=== PATIENT | female | born 1960 | race Caucasian/White ===

== ENCOUNTER 2019-03-31 14:45 | Inpatient (IN) ==
[2019-03-31] MEDS ORDERED: SODIUM CHLORIDE 0.9% 1,000 ML IV SCH (19:30)
[2019-03-31 20:35] LABS: Basophils % 0.4 % (0.0-0.8); Eosinophils # 0.3 10*3/uL (0.0-0.87); Eosinophils % 3.3 % (0.00-10.9); Hemoglobin 13.7 GM/DL (12.0-16.0); Immature Granulocytes % 0.4 %; Immature Granulocytes Absolute 0.04 #; Lymphocytes # 2.4 10*3/uL (1.4-4.0); Lymphocytes % 25.4 % (21.3-54.2); Mean Corpuscular HGB Conc 31.9 GM/DL (32-36); Mean Corpuscular Volume 87.6 FL (87-102); Monocytes % 8.1 % (1.7-12.7); Neutrophils % 62.4 % (38.7-73.9); Platelet Count 208 T/CUMM (130-400); Red Blood Count 4.91 MC/CUMM (3.8-5.5); Red Cell Distribution Width 13.2 % (9.3-17.3); White Blood Count 9.3 T/CUMM (4-12)
[2019-03-31 20:45] LABS: Albumin 3.9 G/DL (3.4-5.0); Bilirubin,Total 0.4 MG/DL (0.2-1.0); Calcium 9.2 MG/DL (8.5-10.1); Osmolality,Calculated 286.2 MOS/KG (273-304); Total Protein 7.2 G/DL (6.4-8.3)
[2019-03-31] MEDS: CHLORHEXIDINE 0.12% ORAL RINSE 60 ML BOTTLE SWISH/SPIT SCH (21:00)
[2019-03-31] MEDS: TOPIRAMATE 25 MG TABLET PO SCH (21:08)
[2019-03-31] MEDS: ALPRAZolam 0.25 MG TABLET PO SCH (21:08)
[2019-03-31] MEDS: ZALEPLON 5 MG CAPSULE PO SCH (21:08)
[2019-03-31] MEDS: ATORVASTATIN 20 MG TABLET PO SCH (21:08)
[2019-03-31] MEDS: NIACIN ER 500 MG TABLET PO SCH (21:08)
[2019-03-31] MEDS: FUROSEMIDE 40 MG TABLET PO SCH (21:08)
[2019-04-01 05:22] LABS: Basophils % 0.3 % (0.0-0.8); Eosinophils # 0.3 10*3/uL (0.0-0.87); Eosinophils % 4.6 % (0.00-10.9); Hematocrit 39.4 VOL% (35.7-47.0); Hemoglobin 12.7 GM/DL (12.0-16.0); Immature Granulocytes % 0.3 %; Immature Granulocytes Absolute 0.02 #; Lymphocytes # 1.7 10*3/uL (1.4-4.0); Lymphocytes % 26.8 % (21.3-54.2); Mean Corpuscular HGB Conc 32.2 GM/DL (32-36); Mean Corpuscular Volume 86.8 FL (87-102); Mean Platelet Volume 12.3 FL (9.6-12.0); Monocytes % 11.3 % (1.7-12.7); Neutrophils % 56.7 % (38.7-73.9); Platelet Count 159 T/CUMM (130-400); Red Blood Count 4.54 MC/CUMM (3.8-5.5); Red Cell Distribution Width 13.2 % (9.3-17.3); White Blood Count 6.3 T/CUMM (4-12)
[2019-04-01 05:44] LABS: Albumin 3.5 G/DL (3.4-5.0); Calcium 8.7 MG/DL (8.5-10.1); Osmolality,Calculated 287.8 MOS/KG (273-304); Total Protein 6.4 G/DL (6.4-8.3)
[2019-04-01] MEDS: CHLORHEXIDINE 0.12% ORAL RINSE 60 ML BOTTLE SWISH/SPIT SCH ×2 (08:50→21:05)
[2019-04-01] MEDS: INSULIN GLARGINE 100 UNIT/ML SUBCUT SCH (08:50)
[2019-04-01] MEDS: INSULIN ASPART PROTAMINE/ASPART 70/30 100 UNIT/ML SUBCUT SCH ×2 (08:50→16:34)
[2019-04-01] MEDS: ATENOLOL 50 MG TABLET PO SCH (08:51)
[2019-04-01] MEDS: FUROSEMIDE 40 MG TABLET PO SCH ×2 (08:51→15:06)
[2019-04-01] MEDS: ALPRAZolam 0.25 MG TABLET PO SCH ×2 (08:51→21:01)
[2019-04-01] MEDS: LOSARTAN 50 MG TABLET PO SCH (08:51)
[2019-04-01] MEDS: ASPIRIN EC 81 MG TABLET PO SCH (08:51)
[2019-04-01] MEDS: PANTOPRAZOLE 40 MG TABLET PO SCH (08:51)
[2019-04-01] MEDS ORDERED: ALUMINUM/MAGNES/SIMETH MAX STR 30 ML UDCUP PO PRN (16:39)
[2019-04-01] MEDS: ZALEPLON 5 MG CAPSULE PO SCH (21:01)
[2019-04-01] MEDS: ATORVASTATIN 20 MG TABLET PO SCH (21:01)
[2019-04-01] MEDS: TOPIRAMATE 25 MG TABLET PO SCH (21:01)
[2019-04-01] MEDS: NIACIN ER 500 MG TABLET PO SCH (21:01)
[2019-04-01] MEDS: CHLORHEXIDINE 4% SOLN 118 ML BOTTLE TOP SCH (21:04)
[2019-04-02] MEDS: ALPRAZolam 0.25 MG TABLET PO SCH ×2 (09:49→21:15)
[2019-04-02] MEDS: INSULIN GLARGINE 100 UNIT/ML SUBCUT SCH (09:49)
[2019-04-02] MEDS: INSULIN ASPART PROTAMINE/ASPART 70/30 100 UNIT/ML SUBCUT SCH ×2 (09:49→16:40)
[2019-04-02] MEDS: CHLORHEXIDINE 4% SOLN 118 ML BOTTLE TOP SCH ×2 (09:50→16:40)
[2019-04-02] MEDS: FUROSEMIDE 40 MG TABLET PO SCH ×2 (09:50→16:39)
[2019-04-02] MEDS: LOSARTAN 50 MG TABLET PO SCH (09:50)
[2019-04-02] MEDS: ATENOLOL 50 MG TABLET PO SCH (09:50)
[2019-04-02] MEDS: PANTOPRAZOLE 40 MG TABLET PO SCH (09:50)
[2019-04-02] MEDS: ASPIRIN EC 81 MG TABLET PO SCH (09:50)
[2019-04-02] MEDS: CHLORHEXIDINE 0.12% ORAL RINSE 60 ML BOTTLE SWISH/SPIT SCH ×2 (09:55→21:16)
[2019-04-02] MEDS ORDERED: DIAZEPAM 5 MG TABLET PO ONE (13:58)
[2019-04-02] MEDS ORDERED: PANTOPRAZOLE 40 MG TABLET PO ONE (13:58)
[2019-04-02] MEDS: ATORVASTATIN 20 MG TABLET PO SCH (21:16)
[2019-04-02] MEDS: NIACIN ER 500 MG TABLET PO SCH (21:16)
[2019-04-02] MEDS: ZALEPLON 5 MG CAPSULE PO SCH (21:16)
[2019-04-02] MEDS: TOPIRAMATE 25 MG TABLET PO SCH (21:16)
[2019-04-03] MEDS ORDERED: PAPAVERINE 60 MG/2 ML VIAL ONE (05:10)
[2019-04-03] MEDS ORDERED: TISSUE ADHESIVE 1 EACH APPLICATOR TOP ONE (05:10)
[2019-04-03] MEDS ORDERED: VANCOMYCIN 1,000 MG VIAL ONE (05:11)
[2019-04-03] MEDS ORDERED: CEFUROXIME INJ 1,500 MG in SODIUM CHLORIDE 0.9% 100 ML IV ONE (06:00)
[2019-04-03] MEDS ORDERED: HEPARIN/NACL 0.9% 2 UNITS/ML 500 ML IV ONE (06:26)
[2019-04-03] MEDS ORDERED: NITROGLYCERIN DRIP 50 MG/250 ML BOTTLE IV ONE (06:27)
[2019-04-03] MEDS ORDERED: FAMOTIDINE 20 MG/2 ML VIAL IV ONE (06:27)
[2019-04-03] MEDS ORDERED: diphenhydrAMINE 50 MG/1 ML VIAL ONE (06:27)
[2019-04-03] MEDS ORDERED: PANTOPRAZOLE 40 MG TABLET PO ONE (07:00)
[2019-04-03] MEDS ORDERED: DIAZEPAM 5 MG TABLET PO ONE (07:00)
[2019-04-03 07:44] LABS: ABG Base Excess -0.9 MMOL/L (-2.5-2.5); ABG HCO3 23.7 MMOL/L (20-26); ABG PCO2 50.7 MM HG (35-48); ABG PH 7.318 (7.35-7.45); Glucose Heart Surgery 310 MG/DL (74-106); Hematocrit Heart Surgery 39.7 PERCENT (37-47); Hemoglobin Heart Surgery 12.9 G/DL (12.0-16.0); Ionized Calcium Arterial 1.19 MMOL/L (1.21-1.46); PCO2 Patient Temp Arterial 50.7 MMHG; PH Patient Temp Arterial 7.318; Patient Temperature 37 CELCIUS; Potassium Heart/CVR 3.4 MMOL/L (3.5-5.1); Sodium Heart/CVR 136 MMOL/L (135-145)
[2019-04-03 07:50] LABS: Apearance,Urine CLEAR (Clear); Bilirubin,Urine Negative (Negative); Blood, Urine Negative (Negative); Glucose,Urine (UA) 150 mg/dL (Negative); Ketones,Urine Negative (Negative); Nitrite,Urine Negative (Negative); Protein,Urine Negative; RBC,Urine 1 /HPF (0-4); Squamous Epithelial Cell,Urine Occasional /HPF (0-10); Urine Color Yellow (Yellow); Urine Specific Gravity 1.008 (1.001-1.035); Urine Urobilinogen < 2.0 EU/DL (0.2-1.0); WBC,Urine <1 /HPF (0-6)
[2019-04-03 08:16] LABS: ABG Base Excess -3.2 MMOL/L (-2.5-2.5); ABG HCO3 21.7 MMOL/L (20-26); ABG Oxygen Saturation 99.5 % (95-100); ABG TCO2 20.3 MMOL/L (23-27); Glucose Heart Surgery 273 MG/DL (74-106); Hematocrit Heart Surgery 36.4 PERCENT (37-47); Hemoglobin Heart Surgery 11.8 G/DL (12.0-16.0); Ionized Calcium Arterial 1.09 MMOL/L (1.21-1.46); Patient Temperature 37 CELCIUS; Sodium Heart/CVR 137 MMOL/L (135-145)
[2019-04-03 08:57] LABS: Hemoglobin Heart Surgery 8.3 G/DL (12.0-16.0); PCO2 Patient Temp Venous 40.3 MM HG; PH Patient Temp Venous 7.39; PO2 Patient Temp Venous 38.4 MM HG; Potassium Heart/CVR 4.6 MMOL/L (3.5-5.1); VBG Base Excess -0.4 MEQ/L (0-4); VBG HCO3 23.7 MEQ/L (24-28); VBG Oxygen Saturation 73.7 %; VBG PCO2 42.3 MMHG (41-51); VBG PH 7.375; VBG PO2 41.1 MMHG (17-40)
[2019-04-03 09:26] LABS: Hematocrit Heart Surgery 28.1 PERCENT (37-47); PCO2 Patient Temp Venous 39.9 MM HG; PH Patient Temp Venous 7.382; PO2 Patient Temp Venous 46.7 MM HG; Potassium Heart/CVR 4.7 MMOL/L (3.5-5.1); VBG Base Excess -1.2 MEQ/L (0-4); VBG HCO3 23.2 MEQ/L (24-28); VBG Oxygen Saturation 80.4 %; VBG PCO2 39.9 MMHG (41-51); VBG PH 7.382; VBG PO2 46.7 MMHG (17-40)
[2019-04-03 09:45] LABS: ABG Base Excess 0.2 MMOL/L (-2.5-2.5); ABG HCO3 24.6 MMOL/L (20-26); ABG Oxygen Saturation 99.1 % (95-100); ABG PCO2 34.8 MM HG (35-48); ABG PH 7.445 (7.35-7.45); ABG TCO2 21.6 MMOL/L (23-27); Glucose Heart Surgery 330 MG/DL (74-106); Hematocrit Heart Surgery 31.9 PERCENT (37-47); Hemoglobin Heart Surgery 10.3 G/DL (12.0-16.0); Ionized Calcium Arterial 1.31 MMOL/L (1.21-1.46); PCO2 Patient Temp Arterial 34.8 MMHG; PH Patient Temp Arterial 7.445; Patient Temperature 37 CELCIUS; Potassium Heart/CVR 4.2 MMOL/L (3.5-5.1); Sodium Heart/CVR 134 MMOL/L (135-145)
[2019-04-03] MEDS ORDERED: MANNITOL 100 GM/500 ML BAG IV ONE (09:46)
[2019-04-03] MEDS ORDERED: DEXTROSE 5% KCL 20 MEQ 20 MEQ/1,000 ML BAG IV ONE (09:46)
[2019-04-03] MEDS ORDERED: SODIUM BICARBONATE 50 MEQ/50 ML VIAL IV ONE ×2 (09:46→09:49)
[2019-04-03] MEDS ORDERED: ALBUMIN 25% 25 GM/100 ML VIAL IV ONE (09:46)
[2019-04-03] MEDS ORDERED: methylPREDNISolone SOD SUC 1,000 MG/8 ML VIAL ONE (09:47)
[2019-04-03] MEDS ORDERED: FUROSEMIDE 20 MG/2 ML VIAL ONE (09:47)
[2019-04-03] MEDS ORDERED: HEPARIN 10,000 UNIT/10 ML VIAL ONE (09:47)
[2019-04-03] MEDS ORDERED: MAGNESIUM SULFATE 5 GM/10 ML VIAL IV ONE (09:47)
[2019-04-03] MEDS ORDERED: PROTAMINE SULFATE 250 MG/25 ML VIAL IV ONE (09:47)
[2019-04-03] MEDS ORDERED: PHENYLEPHRINE DRIP 40 MG/250 ML PREMIX IV ONE (09:49)
[2019-04-03] MEDS ORDERED: NITROPRUSSIDE 50 MG/2 ML VIAL ONE (09:49)
[2019-04-03] MEDS ORDERED: CALCIUM CHLORIDE 1,000 MG/10 ML SYRINGE IV ONE (09:49)
[2019-04-03] MEDS ORDERED: POTASSIUM CHLORIDE RIDER 100 ML IV ONE (09:49)
[2019-04-03] MEDS: SODIUM CHLORIDE 0.45% 1,000 ML IV SCH ×3 (10:30→23:30)
[2019-04-03] MEDS ORDERED: CALCIUM CHLORIDE 1,000 MG/10 ML VIAL IV ONE (10:41)
[2019-04-03] MEDS ORDERED: SEVOFLURANE 1 UNIT/15 MINUTE INH ONE (10:41)
[2019-04-03] MEDS ORDERED: SODIUM CHLORIDE 0.9% 100 ML IV ONE (10:42)
[2019-04-03] MEDS ORDERED: SUFentanil 250 MCG/5 ML AMP ONE (10:42)
[2019-04-03] MEDS ORDERED: AMINOCAPROIC ACID 5,000 MG/20 ML VIAL ONE (10:42)
[2019-04-03] MEDS ORDERED: LACTATED RINGERS 1,000 ML IV ONE (10:42)
[2019-04-03] MEDS ORDERED: MIDAZOLAM 10 MG/2 ML VIAL ONE (10:42)
[2019-04-03] MEDS ORDERED: SODIUM CHLORIDE 0.9% 2,000 ML IV ONE (10:42)
[2019-04-03] MEDS ORDERED: EPINEPHrine 1 MG/ML VIAL ONE (10:42)
[2019-04-03] MEDS ORDERED: PHENYLEPHRINE 10 MG/1 ML VIAL IV ONE (10:42)
[2019-04-03] MEDS ORDERED: VECURONIUM 10 MG VIAL IV ONE (10:42)
[2019-04-03] MEDS ORDERED: SODIUM CHLORIDE 0.9% 500 ML IV ONE (10:43)
[2019-04-03] MEDS ORDERED: DEXTROSE 50% 25 GM/50 ML SYRINGE IV PRN ×2 (11:03)
[2019-04-03] MEDS ORDERED: MIDAZOLAM 2 MG/2 ML VIAL IV PRN (11:03)
[2019-04-03] MEDS ORDERED: INSULIN REGULAR 100 UNIT/ML IV PRN (11:03)
[2019-04-03] MEDS ORDERED: CALCIUM CHLORIDE 1,000 MG/10 ML SYRINGE IV PRN (11:03)
[2019-04-03] MEDS ORDERED: ALBUMIN 5% 12.5 GM in PREMIX 1 EACH IV PRN (11:03)
[2019-04-03] MEDS ORDERED: MAGNESIUM SULF RIDER 2 GM in PREMIX 1 EACH IV PRN (11:03)
[2019-04-03] MEDS ORDERED: POTASSIUM CHLORIDE RIDER 20 MEQ in PREMIX 1 EACH IV PRN (11:03)
[2019-04-03] MEDS ORDERED: ACETAMINOPHEN 650 MG SUPP RECTAL PRN (11:03)
[2019-04-03] MEDS ORDERED: CHLORHEXIDINE 4% SOLN 118 ML BOTTLE TOP PRN (11:03)
[2019-04-03] MEDS ORDERED: SODIUM CHLORIDE 0.9% 250 ML IV PRN (11:03)
[2019-04-03] MEDS ORDERED: POTASSIUM CHLORIDE RIDER 10 MEQ in PREMIX 1 EACH IV PRN (11:03)
[2019-04-03] MEDS ORDERED: MAGNESIUM SULF RIDER 4 GM in PREMIX 1 EACH IV PRN (11:03)
[2019-04-03 11:31] LABS: ABG Base Excess -3.9 MMOL/L (-2.5-2.5); ABG HCO3 21.1 MMOL/L (20-26); ABG Oxygen Saturation 96.3 % (95-100); ABG PCO2 49.6 MM HG (35-48); ABG PH 7.278 (7.35-7.45); ABG TCO2 21.2 MMOL/L (23-27); Glucose Heart Surgery 235 MG/DL (74-106); Hematocrit Heart Surgery 33.4 PERCENT (37-47); Hemoglobin Heart Surgery 10.8 G/DL (12.0-16.0); Potassium Heart/CVR 3.9 MMOL/L (3.5-5.1)
[2019-04-03 11:35] LABS: Basophils % 0.3 % (0.0-0.8); Eosinophils # 0.1 10*3/uL (0.0-0.87); Eosinophils % 1.4 % (0.00-10.9); Hematocrit 33.5 VOL% (35.7-47.0); Immature Granulocytes % 0.6 %; Immature Granulocytes Absolute 0.04 #; Lymphocytes # 1.1 10*3/uL (1.4-4.0); Lymphocytes % 15.5 % (21.3-54.2); Mean Corpuscular HGB Conc 31.3 GM/DL (32-36); Mean Corpuscular Volume 89.6 FL (87-102); Mean Platelet Volume 11.8 FL (9.6-12.0); Monocytes % 6.1 % (1.7-12.7); Neutrophils % 76.1 % (38.7-73.9); Platelet Count 143 T/CUMM (130-400); Red Blood Count 3.74 MC/CUMM (3.8-5.5); Red Cell Distribution Width 13.2 % (9.3-17.3); White Blood Count 7.1 T/CUMM (4-12)
[2019-04-03 11:40] LABS: Hemoglobin 10.5 GM/DL (12.0-16.0)
[2019-04-03 11:47] LABS: INR 0.9; PT Patient Result 10.3 SECS; Partial Thromboplastin Time 23.4 SECS (0-40)
[2019-04-03] MEDS: INSULIN REGULAR DRIP 100 ML IV SCH ×2 (11:50→20:30)
[2019-04-03 11:59] LABS: Blood Urea Nitrogen 20 MG/DL (7-18); Glucose 226 MG/DL (74-106); Osmolality,Calculated 290.3 MOS/KG (273-304)
[2019-04-03] MEDS ORDERED: ASPIRIN 325 MG TABLET PO ONE (12:49)
[2019-04-03] MEDS: MORPHINE 4 MG/1 ML VIAL IV PRN ×3 (15:00→20:10)
[2019-04-03 15:58] LABS: ABG Base Excess -3.4 MMOL/L (-2.5-2.5); ABG HCO3 21.6 MMOL/L (20-26); ABG Oxygen Saturation 97.5 % (95-100); ABG PCO2 41.4 MM HG (35-48); ABG PH 7.338 (7.35-7.45); Glucose Heart Surgery 192 MG/DL (74-106); Hematocrit Heart Surgery 35.4 PERCENT (37-47); Hemoglobin Heart Surgery 11.5 G/DL (12.0-16.0); Potassium Heart/CVR 3.6 MMOL/L (3.5-5.1)
[2019-04-03] MEDS: CEFUROXIME INJ 1,500 MG in SYRINGE 1 EACH IV SCH (18:38)
[2019-04-03] MEDS: ONDANSETRON 4 MG/2 ML VIAL IV PRN (20:48)
[2019-04-03] MEDS: CHLORHEXIDINE 0.12% ORAL RINSE 60 ML BOTTLE SWISH/SPIT SCH (21:18)
[2019-04-03] MEDS: MORPHINE 10 MG/1 ML VIAL IV PRN (22:06)
[2019-04-04] MEDS: MORPHINE 10 MG/1 ML VIAL IV PRN ×3 (00:33→08:57)
[2019-04-04] MEDS: SODIUM CHLORIDE 0.45% 1,000 ML IV SCH ×2 (01:26→08:24)
[2019-04-04 04:38] LABS: Calcium 7.9 MG/DL (8.5-10.1); Osmolality,Calculated 284.4 MOS/KG (273-304)
[2019-04-04 04:44] LABS: Basophils % 0.1 % (0.0-0.8); Hematocrit 34.6 VOL% (35.7-47.0); Hemoglobin 10.8 GM/DL (12.0-16.0); Immature Granulocytes % 0.6 %; Immature Granulocytes Absolute 0.07 #; Lymphocytes # 0.6 10*3/uL (1.4-4.0); Lymphocytes % 4.9 % (21.3-54.2); Mean Corpuscular HGB Conc 31.2 GM/DL (32-36); Mean Corpuscular Volume 90.3 FL (87-102); Mean Platelet Volume 12.4 FL (9.6-12.0); Monocytes % 5.8 % (1.7-12.7); Neutrophils % 88.6 % (38.7-73.9); Platelet Count 207 T/CUMM (130-400); Red Blood Count 3.83 MC/CUMM (3.8-5.5); Red Cell Distribution Width 13.4 % (9.3-17.3); White Blood Count 12.3 T/CUMM (4-12)
[2019-04-04] MEDS: CEFUROXIME INJ 1,500 MG in SYRINGE 1 EACH IV SCH ×2 (05:34→18:46)
[2019-04-04] MEDS: MORPHINE 4 MG/1 ML VIAL IV PRN ×3 (05:57→20:15)
[2019-04-04 06:20] LABS: Band Neutrophils 5 % (0-10); Lymphocytes 4 % (20-55); Platelet Estimate Adequate; Segmented Neutrophils 86 % (50-85); Total Cells Counted 100
[2019-04-04] MEDS: PANTOPRAZOLE 40 MG VIAL IV SCH (08:37)
[2019-04-04] MEDS: CHLORHEXIDINE 0.12% ORAL RINSE 60 ML BOTTLE SWISH/SPIT SCH ×2 (08:38→22:08)
[2019-04-04] MEDS ORDERED: FUROSEMIDE 40 MG/4 ML VIAL IV ONE (09:50)
[2019-04-04] MEDS: ASPIRIN EC 325 MG TABLET PO SCH (09:55)
[2019-04-04] MEDS: FUROSEMIDE 40 MG TABLET PO SCH (09:55)
[2019-04-04] MEDS: ATORVASTATIN 40 MG TABLET PO SCH ×2 (11:14→21:57)
[2019-04-04] MEDS: CLOPIDOGREL 75 MG TABLET PO SCH (11:14)
[2019-04-04] MEDS: METOPROLOL TARTRATE 25 MG TABLET PO SCH ×2 (11:15→22:04)
[2019-04-04] MEDS: INSULIN GLARGINE 100 UNIT/ML SUBCUT SCH (11:18)
[2019-04-04] MEDS: INSULIN NPH/REGULAR 70/30 100 UNIT/ML SUBCUT SCH ×2 (11:18→22:02)
[2019-04-04] MEDS ORDERED: KETOROLAC 30 MG/1 ML VIAL IV ONE (15:03)
[2019-04-04] MEDS: oxyCODONE/ACETAMINOPHEN 5-325 MG TABLET PO PRN ×2 (15:25→21:57)
[2019-04-04] MEDS: ALPRAZolam 0.25 MG TABLET PO SCH ×2 (15:39→21:57)
[2019-04-04] MEDS: INSULIN LISPRO 100 UNIT/ML SUBCUT SCH ×2 (17:06→22:04)
[2019-04-04] MEDS ORDERED: LEVALBUTEROL 1.25 MG/3 ML NEB RESP TX SCH (19:00)
[2019-04-04] MEDS: LEVALBUTEROL 1.25 MG/3 ML NEB RESP TX SCH (19:35)
[2019-04-04] MEDS: ONDANSETRON 4 MG/2 ML VIAL IV PRN (20:14)
[2019-04-05] MEDS: LEVALBUTEROL 1.25 MG/3 ML NEB RESP TX SCH ×4 (00:07→19:11)
[2019-04-05] MEDS: MORPHINE 4 MG/1 ML VIAL IV PRN ×2 (00:44→21:00)
[2019-04-05] MEDS: oxyCODONE/ACETAMINOPHEN 5-325 MG TABLET PO PRN ×5 (04:57→23:37)
[2019-04-05 05:28] LABS: Basophils % 0.2 % (0.0-0.8); Eosinophils % 0.1 % (0.00-10.9); Hematocrit 34.4 VOL% (35.7-47.0); Hemoglobin 10.9 GM/DL (12.0-16.0); Immature Granulocytes % 0.9 %; Immature Granulocytes Absolute 0.12 #; Lymphocytes # 1.4 10*3/uL (1.4-4.0); Lymphocytes % 10.4 % (21.3-54.2); Mean Corpuscular HGB Conc 31.7 GM/DL (32-36); Mean Corpuscular Volume 89.6 FL (87-102); Mean Platelet Volume 12.2 FL (9.6-12.0); Monocytes % 8.2 % (1.7-12.7); Neutrophils % 80.2 % (38.7-73.9); Platelet Count 221 T/CUMM (130-400); Red Blood Count 3.84 MC/CUMM (3.8-5.5); Red Cell Distribution Width 13.8 % (9.3-17.3); White Blood Count 13.3 T/CUMM (4-12)
[2019-04-05 05:37] LABS: Calcium 8.7 MG/DL (8.5-10.1); Osmolality,Calculated 287.8 MOS/KG (273-304)
[2019-04-05] MEDS: ALPRAZolam 0.25 MG TABLET PO SCH ×2 (08:34→20:44)
[2019-04-05] MEDS: CLOPIDOGREL 75 MG TABLET PO SCH (08:34)
[2019-04-05] MEDS: METOPROLOL TARTRATE 25 MG TABLET PO SCH ×2 (08:34→20:44)
[2019-04-05] MEDS: FUROSEMIDE 40 MG TABLET PO SCH (08:34)
[2019-04-05] MEDS: ASPIRIN EC 325 MG TABLET PO SCH (08:34)
[2019-04-05] MEDS: INSULIN LISPRO 100 UNIT/ML SUBCUT SCH ×4 (08:36→20:48)
[2019-04-05] MEDS: INSULIN GLARGINE 100 UNIT/ML SUBCUT SCH ×2 (08:36→09:50)
[2019-04-05] MEDS: CHLORHEXIDINE 0.12% ORAL RINSE 60 ML BOTTLE SWISH/SPIT SCH ×2 (08:37→20:53)
[2019-04-05] MEDS: INSULIN NPH/REGULAR 70/30 100 UNIT/ML SUBCUT SCH ×2 (08:37→20:45)
[2019-04-05] MEDS: PANTOPRAZOLE 40 MG VIAL IV SCH (08:37)
[2019-04-05] MEDS: ATORVASTATIN 40 MG TABLET PO SCH (20:43)
[2019-04-06] MEDS: LEVALBUTEROL 1.25 MG/3 ML NEB RESP TX SCH ×4 (01:34→19:58)
[2019-04-06] MEDS: oxyCODONE/ACETAMINOPHEN 5-325 MG TABLET PO PRN ×3 (05:35→20:57)
[2019-04-06 06:05] LABS: Basophils % 0.2 % (0.0-0.8); Eosinophils % 0.3 % (0.00-10.9); Hematocrit 34.8 VOL% (35.7-47.0); Hemoglobin 10.8 GM/DL (12.0-16.0); Immature Granulocytes % 0.9 %; Immature Granulocytes Absolute 0.09 #; Lymphocytes # 1.4 10*3/uL (1.4-4.0); Lymphocytes % 14.4 % (21.3-54.2); Mean Corpuscular Volume 90.6 FL (87-102); Mean Platelet Volume 11.7 FL (9.6-12.0); Monocytes % 9.4 % (1.7-12.7); Neutrophils % 74.8 % (38.7-73.9); Platelet Count 224 T/CUMM (130-400); Red Blood Count 3.84 MC/CUMM (3.8-5.5); Red Cell Distribution Width 13.5 % (9.3-17.3); White Blood Count 9.8 T/CUMM (4-12)
[2019-04-06 06:30] LABS: Calcium 8.8 MG/DL (8.5-10.1); Osmolality,Calculated 287.7 MOS/KG (273-304)
[2019-04-06] MEDS: ASPIRIN EC 325 MG TABLET PO SCH (09:25)
[2019-04-06] MEDS: METOPROLOL TARTRATE 25 MG TABLET PO SCH ×2 (09:26→20:56)
[2019-04-06] MEDS: CLOPIDOGREL 75 MG TABLET PO SCH (09:26)
[2019-04-06] MEDS: FUROSEMIDE 40 MG TABLET PO SCH (09:26)
[2019-04-06] MEDS: ALPRAZolam 0.25 MG TABLET PO SCH ×2 (09:26→20:56)
[2019-04-06] MEDS: PANTOPRAZOLE 40 MG TABLET PO SCH (09:26)
[2019-04-06] MEDS: INSULIN GLARGINE 100 UNIT/ML SUBCUT SCH ×2 (09:27→09:28)
[2019-04-06] MEDS: INSULIN LISPRO 100 UNIT/ML SUBCUT SCH ×4 (09:28→21:02)
[2019-04-06] MEDS: INSULIN NPH/REGULAR 70/30 100 UNIT/ML SUBCUT SCH ×2 (09:28→20:55)
[2019-04-06] MEDS: CHLORHEXIDINE 0.12% ORAL RINSE 60 ML BOTTLE SWISH/SPIT SCH ×2 (09:29→20:54)
[2019-04-06] MEDS ORDERED: BISACODYL 5 MG TABLET PO PRN (12:55)
[2019-04-06] MEDS ORDERED: hydrALAZINE 20 MG/1 ML VIAL IV PRN (12:57)
[2019-04-06] MEDS: POLYETHYLENE GLYCOL POWDER 17 GM PACK PO SCH (13:18)
[2019-04-06] MEDS: LISINOPRIL 5 MG TABLET PO SCH ×2 (13:19→20:57)
[2019-04-06 14:27] LABS: Apearance,Urine CLEAR (Clear); Bilirubin,Urine Negative (Negative); Blood, Urine Negative (Negative); Glucose,Urine (UA) 150 mg/dL (Negative); Ketones,Urine Negative (Negative); Nitrite,Urine Negative (Negative); Protein,Urine Negative; RBC,Urine <1 /HPF (0-4); Squamous Epithelial Cell,Urine Occasional /HPF (0-10); Urine Color Colorless (Yellow); Urine Specific Gravity 1.006 (1.001-1.035); Urine Urobilinogen < 2.0 EU/DL (0.2-1.0); WBC,Urine <1 /HPF (0-6)
[2019-04-06] MEDS: MORPHINE 10 MG/1 ML VIAL IV PRN (20:55)
[2019-04-06] MEDS: TOPIRAMATE 25 MG TABLET PO SCH (20:56)
[2019-04-06] MEDS: ATORVASTATIN 40 MG TABLET PO SCH (20:57)
[2019-04-07] MEDS: LEVALBUTEROL 1.25 MG/3 ML NEB RESP TX SCH ×4 (04:15→19:30)
[2019-04-07] MEDS: LISINOPRIL 5 MG TABLET PO SCH ×2 (09:27→21:34)
[2019-04-07] MEDS: ACETAMINOPHEN 325 MG TABLET PO PRN ×3 (09:28→23:38)
[2019-04-07] MEDS: PANTOPRAZOLE 40 MG TABLET PO SCH (09:28)
[2019-04-07] MEDS: METOPROLOL TARTRATE 25 MG TABLET PO SCH (09:29)
[2019-04-07] MEDS: CLOPIDOGREL 75 MG TABLET PO SCH (09:29)
[2019-04-07] MEDS: ASPIRIN EC 325 MG TABLET PO SCH (09:29)
[2019-04-07] MEDS: ALPRAZolam 0.25 MG TABLET PO SCH ×2 (09:29→21:33)
[2019-04-07] MEDS: POLYETHYLENE GLYCOL POWDER 17 GM PACK PO SCH (09:30)
[2019-04-07] MEDS: INSULIN LISPRO 100 UNIT/ML SUBCUT SCH ×4 (09:30→22:41)
[2019-04-07] MEDS: INSULIN NPH/REGULAR 70/30 100 UNIT/ML SUBCUT SCH ×2 (09:30→21:33)
[2019-04-07] MEDS: FUROSEMIDE 40 MG TABLET PO SCH ×2 (09:30→10:28)
[2019-04-07] MEDS: CHLORHEXIDINE 0.12% ORAL RINSE 60 ML BOTTLE SWISH/SPIT SCH ×2 (09:31→21:34)
[2019-04-07] MEDS ORDERED: METOPROLOL TARTRATE 25 MG TABLET PO ONE (10:13)
[2019-04-07] MEDS ORDERED: hydrALAZINE 20 MG/1 ML VIAL IV ONE (10:23)
[2019-04-07] MEDS: INSULIN GLARGINE 100 UNIT/ML SUBCUT SCH (13:38)
[2019-04-07] MEDS: TOPIRAMATE 25 MG TABLET PO SCH (21:33)
[2019-04-07] MEDS: METOPROLOL TARTRATE 50 MG TABLET PO SCH (21:34)
[2019-04-07] MEDS: ATORVASTATIN 40 MG TABLET PO SCH (21:34)
[2019-04-08] MEDS: LEVALBUTEROL 1.25 MG/3 ML NEB RESP TX SCH ×3 (00:37→12:23)
[2019-04-08 03:51] LABS: Basophils % 0.5 % (0.0-0.8); Eosinophils # 0.4 10*3/uL (0.0-0.87); Hematocrit 34.5 VOL% (35.7-47.0); Hemoglobin 10.7 GM/DL (12.0-16.0); Immature Granulocytes % 2.5 %; Immature Granulocytes Absolute 0.18 #; Lymphocytes # 1.8 10*3/uL (1.4-4.0); Lymphocytes % 24.9 % (21.3-54.2); Mean Corpuscular Volume 89.4 FL (87-102); Mean Platelet Volume 10.8 FL (9.6-12.0); Monocytes % 10.2 % (1.7-12.7); NRBC # 0.02 10*3/uL; Neutrophils % 55.9 % (38.7-73.9); Platelet Count 284 T/CUMM (130-400); Red Blood Count 3.86 MC/CUMM (3.8-5.5); Red Cell Distribution Width 13.2 % (9.3-17.3); White Blood Count 7.3 T/CUMM (4-12)
[2019-04-08 04:08] LABS: Calcium 8.6 MG/DL (8.5-10.1); Osmolality,Calculated 282.5 MOS/KG (273-304)
[2019-04-08] MEDS: INSULIN LISPRO 100 UNIT/ML SUBCUT SCH (08:51)
[2019-04-08] MEDS: INSULIN GLARGINE 100 UNIT/ML SUBCUT SCH (08:52)
[2019-04-08] MEDS: INSULIN NPH/REGULAR 70/30 100 UNIT/ML SUBCUT SCH (08:52)
[2019-04-08] MEDS: METOPROLOL TARTRATE 50 MG TABLET PO SCH (08:53)
[2019-04-08] MEDS: POLYETHYLENE GLYCOL POWDER 17 GM PACK PO SCH (08:53)
[2019-04-08] MEDS: ALPRAZolam 0.25 MG TABLET PO SCH (08:53)
[2019-04-08] MEDS: PANTOPRAZOLE 40 MG TABLET PO SCH (08:53)
[2019-04-08] MEDS: FUROSEMIDE 40 MG TABLET PO SCH (08:53)
[2019-04-08] MEDS: ASPIRIN EC 325 MG TABLET PO SCH (08:53)
[2019-04-08] MEDS: LISINOPRIL 5 MG TABLET PO SCH (08:53)
[2019-04-08] MEDS: CLOPIDOGREL 75 MG TABLET PO SCH (08:53)
[2019-04-08] MEDS: ACETAMINOPHEN 325 MG TABLET PO PRN (08:54)
[2019-04-08] MEDS: CHLORHEXIDINE 0.12% ORAL RINSE 60 ML BOTTLE SWISH/SPIT SCH (09:06)
[2019-04-08 12:02] VITALS: BP 165/99
== END 2019-04-08 13:21 | disposition home health service (06) | DRG 236 ==
LOC: N.TELEN 14:45 → N.CVR 04-03 09:45 → N.ICU 04-04 10:03 → N.TELES 04-04 16:21
PROVIDERS: ADMIT Thoracic Surgery (Cardiothoracic Vascular Surgery); ATTEND Thoracic Surgery (Cardiothoracic Vascular Surgery)

== ENCOUNTER 2020-08-29 18:58 | Inpatient (IN) ==
[2020-08-29] MEDS ORDERED: DEXAMETHASONE 4 MG/1 ML VIAL IV STA (19:39)
[2020-08-29] MEDS ORDERED: ALBUTEROL/IPRATROPIUM 3 ML NEB RESP TX STA (19:39)
[2020-08-29] MEDS ORDERED: cefTRIAXone 1,000 MG in SODIUM CHLORIDE 0.9% 100 ML IV STA (19:39)
[2020-08-29 19:41] LABS: Basophils % 0.2 % (0.0-0.8); Eosinophils % 0.1 % (0.00-10.9); Hematocrit 37.3 VOL% (35.7-47.0); Hemoglobin 11.9 GM/DL (12.0-16.0); Immature Granulocytes % 1.5 %; Immature Granulocytes Absolute 0.13 #; Lymphocytes # 1.2 10*3/uL (1.4-4.0); Lymphocytes % 13.3 % (21.3-54.2); Mean Corpuscular HGB Conc 31.9 GM/DL (32-36); Mean Platelet Volume 10.6 FL (9.6-12.0); Monocytes % 7.6 % (1.7-12.7); NRBC # 0.02 10*3/uL; Neutrophils % 77.3 % (38.7-73.9); Platelet Count 215 T/CUMM (130-400); Red Blood Count 4.39 MC/CUMM (3.8-5.5); Red Cell Distribution Width 14.8 % (9.3-17.3); White Blood Count 8.8 T/CUMM (4-12)
[2020-08-29 19:53] LABS: PT Patient Result 10.3 SECS (9.8-11.9); Partial Thromboplastin Time 30.7 SECS (23.9-33.8)
[2020-08-29 19:59] LABS: Albumin 3.1 G/DL (3.4-5.0); Bilirubin,Total 0.6 MG/DL (0.2-1.0); Calcium 8.6 MG/DL (8.5-10.1); Osmolality,Calculated 286.8 MOS/KG (273-304); Total Protein 7.5 G/DL (6.4-8.3)
[2020-08-29 20:11] LABS: ABG Base Excess -3.7 MMOL/L (-2.5-2.5); ABG HCO3 20.7 MMOL/L (20-26); ABG Oxygen Saturation 92.3 % (95-100); ABG PH 7.389 (7.35-7.45); ABG TCO2 21.7 MMOL/L (23-27)
[2020-08-29 22:38] LABS: Bilirubin,Urine Negative (Negative); Blood, Urine Moderate mg/dL (Negative); Glucose,Urine (UA) >=500 mg/dL (Negative); Ketones,Urine 5 mg/dL (Negative); Mucus,Urine Occasional /LPF (Occasional); Nitrite,Urine Negative (Negative); Protein,Urine 100 MG/DL; RBC,Urine 35 /HPF (0-4); Squamous Epithelial Cell,Urine Occasional /HPF (0-10); Urine Appearance Slightly Hazy (Clear); Urine Color Yellow (Yellow); Urine Specific Gravity 1.027 (1.001-1.035); Urine Urobilinogen < 2.0 EU/DL (0.2-1.0); WBC,Urine 2 /HPF (0-6)
[2020-08-29] MEDS ORDERED: GLUCAGON 1 MG VIAL IM PRN (22:41)
[2020-08-29] MEDS ORDERED: DEXTROSE 50% 25 GM/50 ML VIAL IV PRN ×2 (22:41)
[2020-08-29] MEDS ORDERED: DEXTROSE 50% 25 GM/50 ML SYRINGE IV PRN (22:53)
[2020-08-30] MEDS: ENOXAPARIN 40 MG/0.4 ML SYRINGE SUBCUT SCH ×2 (01:02→23:33)
[2020-08-30] MEDS: ACETAMINOPHEN 325 MG TABLET PO PRN (01:03)
[2020-08-30] MEDS ORDERED: GABAPENTIN 600 MG TABLET PO SCH (01:56)
[2020-08-30] MEDS ORDERED: MIRTAZAPINE 15 MG TABLET PO SCH (01:56)
[2020-08-30] MEDS ORDERED: ALPRAZolam 0.5 MG TABLET PO SCH (01:57)
[2020-08-30] MEDS: ROSUVASTATIN 20 MG TABLET PO SCH ×2 (02:23→21:32)
[2020-08-30 04:08] LABS: Basophils % 0.1 % (0.0-0.8); Hematocrit 38.3 VOL% (35.7-47.0); Hemoglobin 12.1 GM/DL (12.0-16.0); Immature Granulocytes % 1.8 %; Immature Granulocytes Absolute 0.14 #; Mean Corpuscular HGB Conc 31.6 GM/DL (32-36); Mean Corpuscular Volume 85.7 FL (87-102); Mean Platelet Volume 10.9 FL (9.6-12.0); Monocytes % 5.1 % (1.7-12.7); Platelet Count 226 T/CUMM (130-400); Red Blood Count 4.47 MC/CUMM (3.8-5.5); Red Cell Distribution Width 14.8 % (9.3-17.3); White Blood Count 7.7 T/CUMM (4-12)
[2020-08-30 04:25] LABS: Albumin 3.3 G/DL (3.4-5.0); Bilirubin,Total 0.7 MG/DL (0.2-1.0); Calcium 9.1 MG/DL (8.5-10.1); Osmolality,Calculated 283.4 MOS/KG (273-304); Total Protein 8.1 G/DL (6.4-8.3)
[2020-08-30] MEDS ORDERED: INSULIN GLARGINE 100 UNIT/ML SUBCUT SCH (09:00)
[2020-08-30] MEDS: DEXAMETHASONE 4 MG/1 ML VIAL IV SCH (09:07)
[2020-08-30] MEDS: INSULIN LISPRO 100 UNIT/ML SUBCUT SCH ×2 (09:07→17:39)
[2020-08-30] MEDS ORDERED: SODIUM CHLORIDE 0.45% 1,000 ML IV SCH (12:00)
[2020-08-30 15:08] LABS: Calcium 9.2 MG/DL (8.5-10.1); Osmolality,Calculated 287.2 MOS/KG (273-304)
[2020-08-30] MEDS ORDERED: ROSUVASTATIN 20 MG TABLET PO SCH (21:00)
[2020-08-30] MEDS: METOPROLOL TARTRATE 25 MG TABLET PO SCH (21:32)
[2020-08-30] MEDS: cefTRIAXone 1,000 MG in SYRINGE 1 EACH IV SCH (21:33)
[2020-08-30] MEDS: MIRTAZAPINE 15 MG TABLET PO SCH (21:33)
[2020-08-30] MEDS: GABAPENTIN 600 MG TABLET PO SCH (21:33)
[2020-08-30] MEDS: ALPRAZolam 0.5 MG TABLET PO PRN (23:34)
[2020-08-31 04:14] LABS: Basophils % 0.1 % (0.0-0.8); Hematocrit 36.7 VOL% (35.7-47.0); Hemoglobin 11.9 GM/DL (12.0-16.0); Immature Granulocytes % 1.7 %; Immature Granulocytes Absolute 0.14 #; Lymphocytes % 12.2 % (21.3-54.2); Mean Corpuscular HGB Conc 32.4 GM/DL (32-36); Mean Platelet Volume 11.2 FL (9.6-12.0); Monocytes % 8.7 % (1.7-12.7); Neutrophils % 77.3 % (38.7-73.9); Platelet Count 270 T/CUMM (130-400); Red Blood Count 4.37 MC/CUMM (3.8-5.5); Red Cell Distribution Width 14.4 % (9.3-17.3); White Blood Count 8.1 T/CUMM (4-12)
[2020-08-31 04:47] LABS: Calcium 8.9 MG/DL (8.5-10.1); Osmolality,Calculated 282.5 MOS/KG (273-304)
[2020-08-31] MEDS: ASPIRIN EC 325 MG TABLET PO SCH (08:16)
[2020-08-31] MEDS: CLOPIDOGREL 75 MG TABLET PO SCH (08:17)
[2020-08-31] MEDS: GABAPENTIN 300 MG CAPSULE PO SCH (08:17)
[2020-08-31] MEDS: METOPROLOL TARTRATE 25 MG TABLET PO SCH ×2 (08:17→21:32)
[2020-08-31] MEDS: DEXAMETHASONE 4 MG/1 ML VIAL IV SCH (08:17)
[2020-08-31] MEDS: INSULIN LISPRO 100 UNIT/ML SUBCUT SCH ×3 (08:18→21:35)
[2020-08-31] MEDS: INSULIN GLARGINE 100 UNIT/ML SUBCUT SCH (08:23)
[2020-08-31] MEDS ORDERED: guaiFENesin 200 MG/10 ML UDCUP PO PRN (10:43)
[2020-08-31] MEDS: ACETAMINOPHEN 325 MG TABLET PO PRN (15:58)
[2020-08-31] MEDS ORDERED: GLUCAGON 1 MG VIAL IM PRN ×2 (20:33→20:45)
[2020-08-31] MEDS ORDERED: DEXTROSE 50% 25 GM/50 ML VIAL IV PRN (20:45)
[2020-08-31] MEDS: ROSUVASTATIN 20 MG TABLET PO SCH (21:32)
[2020-08-31] MEDS: MIRTAZAPINE 15 MG TABLET PO SCH (21:35)
[2020-08-31] MEDS: GABAPENTIN 600 MG TABLET PO SCH (21:35)
[2020-08-31] MEDS: cefTRIAXone 1,000 MG in SYRINGE 1 EACH IV SCH (21:36)
[2020-08-31] MEDS: ENOXAPARIN 40 MG/0.4 ML SYRINGE SUBCUT SCH (23:58)
[2020-09-01 04:08] LABS: Basophils % 0.3 % (0.0-0.8); Hematocrit 39.9 VOL% (35.7-47.0); Immature Granulocytes % 2.6 %; Lymphocytes # 1.2 10*3/uL (1.4-4.0); Mean Corpuscular HGB Conc 32.6 GM/DL (32-36); Mean Platelet Volume 10.9 FL (9.6-12.0); Monocytes % 8.7 % (1.7-12.7); Neutrophils % 73.4 % (38.7-73.9); Platelet Count 296 T/CUMM (130-400); Red Blood Count 4.81 MC/CUMM (3.8-5.5); Red Cell Distribution Width 14.2 % (9.3-17.3); White Blood Count 7.7 T/CUMM (4-12)
[2020-09-01 04:35] LABS: Calcium 9.2 MG/DL (8.5-10.1); Osmolality,Calculated 283.2 MOS/KG (273-304)
[2020-09-01] MEDS: INSULIN LISPRO 100 UNIT/ML SUBCUT SCH ×6 (08:24→20:04)
[2020-09-01] MEDS: INSULIN GLARGINE 100 UNIT/ML SUBCUT SCH (08:25)
[2020-09-01] MEDS: ASPIRIN EC 325 MG TABLET PO SCH (08:25)
[2020-09-01] MEDS: GABAPENTIN 300 MG CAPSULE PO SCH (08:25)
[2020-09-01] MEDS: DEXAMETHASONE 4 MG/1 ML VIAL IV SCH (08:25)
[2020-09-01] MEDS: METOPROLOL TARTRATE 25 MG TABLET PO SCH ×2 (08:25→20:05)
[2020-09-01] MEDS: CLOPIDOGREL 75 MG TABLET PO SCH (08:26)
[2020-09-01] MEDS ORDERED: ONDANSETRON 4 MG/2 ML VIAL IV PRN (11:46)
[2020-09-01] MEDS: cefTRIAXone 1,000 MG in SYRINGE 1 EACH IV SCH (20:04)
[2020-09-01] MEDS: GABAPENTIN 600 MG TABLET PO SCH (20:05)
[2020-09-01] MEDS: ROSUVASTATIN 20 MG TABLET PO SCH (20:05)
[2020-09-01] MEDS: MIRTAZAPINE 15 MG TABLET PO SCH (20:05)
[2020-09-01] MEDS: ALPRAZolam 0.5 MG TABLET PO PRN (20:18)
[2020-09-01] MEDS: ENOXAPARIN 40 MG/0.4 ML SYRINGE SUBCUT SCH (22:19)
[2020-09-02] MEDS: ASPIRIN EC 325 MG TABLET PO SCH (08:56)
[2020-09-02] MEDS: GABAPENTIN 300 MG CAPSULE PO SCH (08:56)
[2020-09-02] MEDS: INSULIN GLARGINE 100 UNIT/ML SUBCUT SCH (08:56)
[2020-09-02] MEDS: DEXAMETHASONE 4 MG/1 ML VIAL IV SCH (08:56)
[2020-09-02] MEDS: INSULIN LISPRO 100 UNIT/ML SUBCUT SCH ×8 (08:56→20:30)
[2020-09-02] MEDS: METOPROLOL TARTRATE 25 MG TABLET PO SCH ×2 (08:57→20:31)
[2020-09-02] MEDS: CLOPIDOGREL 75 MG TABLET PO SCH (08:57)
[2020-09-02] MEDS: cefTRIAXone 1,000 MG in SYRINGE 1 EACH IV SCH (20:30)
[2020-09-02] MEDS: ROSUVASTATIN 20 MG TABLET PO SCH (20:31)
[2020-09-02] MEDS: GABAPENTIN 600 MG TABLET PO SCH (20:31)
[2020-09-02] MEDS: ALPRAZolam 0.5 MG TABLET PO PRN (20:31)
[2020-09-02] MEDS: MIRTAZAPINE 15 MG TABLET PO SCH (20:31)
[2020-09-02] MEDS ORDERED: INSULIN GLARGINE 100 UNIT/ML SUBCUT SCH (21:00)
[2020-09-02] MEDS: ENOXAPARIN 40 MG/0.4 ML SYRINGE SUBCUT SCH (22:05)
[2020-09-03] MEDS: GABAPENTIN 300 MG CAPSULE PO SCH (08:19)
[2020-09-03] MEDS: INSULIN LISPRO 100 UNIT/ML SUBCUT SCH ×4 (08:19→12:39)
[2020-09-03] MEDS: METOPROLOL TARTRATE 25 MG TABLET PO SCH (08:20)
[2020-09-03] MEDS: CLOPIDOGREL 75 MG TABLET PO SCH (08:20)
[2020-09-03] MEDS: DEXAMETHASONE 4 MG/1 ML VIAL IV SCH (08:20)
[2020-09-03] MEDS ORDERED: ASPIRIN EC 81 MG TABLET PO SCH (09:00)
[2020-09-03 11:21] VITALS: BP 142/80
== END 2020-09-03 14:10 | disposition home or self-care (01) | DRG 137 ==
LOC: EDUNIT# → EDBD → N.ED 18:58 → SUATTDRO 22:35 → N.EDINP 22:35 → N.2E 08-30 00:08
PROVIDERS: ADMIT Internal Medicine; ATTEND Emergency Medicine

== ENCOUNTER 2021-08-14 08:47 | Observation (INO) ==
[2021-08-14 09:13] LABS: Basophils % 0.3 % (0.0-0.8); Eosinophils # 0.8 10*3/uL (0.0-0.87); Eosinophils % 13.3 % (0.00-10.9); Hematocrit 40.6 VOL% (35.7-47.0); Hemoglobin 13.3 GM/DL (12.0-16.0); Immature Granulocytes % 0.5 %; Immature Granulocytes Absolute 0.03 #; Lymphocytes # 1.4 10*3/uL (1.4-4.0); Lymphocytes % 23.6 % (21.3-54.2); Mean Corpuscular HGB Conc 32.8 GM/DL (32-36); Mean Corpuscular Volume 84.6 FL (87-102); Mean Platelet Volume 11.1 FL (9.6-12.0); Neutrophils % 54.3 % (38.7-73.9); Platelet Count 208 T/CUMM (130-400); Red Cell Distribution Width 12.9 % (9.3-17.3); White Blood Count 5.9 T/CUMM (4-12)
[2021-08-14] MEDS ORDERED: ASPIRIN 325 MG TABLET PO STA (09:16)
[2021-08-14 09:26] LABS: INR 0.9; PT Patient Result 10.6 SECS (10.5-12.0); Partial Thromboplastin Time 23.4 SECS (23.9-33.8)
[2021-08-14 09:34] LABS: Albumin 4.3 G/DL (3.4-5.0); Bilirubin,Total 0.5 MG/DL (0.20-1.00); Calcium 9.6 MG/DL (8.5-10.1); Osmolality,Calculated 296.8 MOS/KG (273-304); Potassium 4.4 MMOL/L (3.5-5.1); Total Protein 7.5 G/DL (6.4-8.2)
[2021-08-14 09:45] LABS: Eosinophils 18 % (0-10); Hypochromasia 1+; Lymphocytes 26 % (20-55); Microcytosis 1+; Platelet Estimate Adequate; Segmented Neutrophils 53 % (50-85); Total Cells Counted 100
[2021-08-14] MEDS: NITROGLYCERIN SL 0.4 MG TABLET SL PRN ×2 (09:50→10:55)
[2021-08-14] MEDS ORDERED: GLUCAGON 1 MG VIAL IM PRN (10:56)
[2021-08-14] MEDS ORDERED: ONDANSETRON 4 MG/2 ML VIAL IV PRN (10:56)
[2021-08-14] MEDS ORDERED: DEXTROSE 50% 25 GM/50 ML VIAL IV PRN (10:56)
[2021-08-14] MEDS ORDERED: INSULIN REGULAR 100 UNIT/ML ONE (13:32)
[2021-08-14] MEDS: INSULIN REGULAR 100 UNIT/ML SUBCUT SCH ×3 (13:34→21:42)
[2021-08-14] MEDS ORDERED: FUROSEMIDE 40 MG TABLET PO ONE (13:37)
[2021-08-14] MEDS ORDERED: ALUM/MAG/SIMETH/LIDO VISC 1:1 30 ML BOTTLE PO ONE (14:24)
[2021-08-14] MEDS ORDERED: diphenhydrAMINE CAP 25 MG CAPSULE PO ONE (15:10)
[2021-08-14] MEDS ORDERED: DIAZEPAM 5 MG TABLET PO ONE (15:10)
[2021-08-14] MEDS: SODIUM CHLORIDE 0.9% 1,000 ML IV SCH (15:26)
[2021-08-14] MEDS: CARBIDOPA/LEVODOPA 25-100 MG TABLET PO SCH ×2 (15:26→21:41)
[2021-08-14] MEDS: ACETYLCYSTEINE 600 MG CAPSULE PO SCH ×2 (15:26→21:41)
[2021-08-14] MEDS ORDERED: INFLUENZA VIRUS VACCINE 0.5 ML SYRINGE IM ONE (17:33)
[2021-08-14] MEDS: ACETAMINOPHEN 325 MG TABLET PO PRN (18:02)
[2021-08-14] MEDS ORDERED: INSULIN GLARGINE 100 UNIT/ML SUBCUT SCH (21:00)
[2021-08-14] MEDS: GABAPENTIN 300 MG CAPSULE PO SCH (21:41)
[2021-08-14] MEDS: MIRTAZAPINE 15 MG TABLET PO SCH (21:41)
[2021-08-14] MEDS: ALPRAZolam 0.5 MG TABLET PO SCH (21:41)
[2021-08-14] MEDS: ROSUVASTATIN 20 MG TABLET PO SCH (21:41)
[2021-08-14] MEDS: METOPROLOL TARTRATE 25 MG TABLET PO SCH (21:41)
[2021-08-14] MEDS: INSULIN GLARGINE 100 UNIT/ML SUBCUT SCH (21:42)
[2021-08-15] MEDS: SODIUM CHLORIDE 0.9% 1,000 ML IV SCH ×2 (00:05→11:27)
[2021-08-15 04:22] LABS: Basophils % 0.5 % (0.0-0.8); Eosinophils # 0.6 10*3/uL (0.0-0.87); Eosinophils % 9.7 % (0.00-10.9); Hematocrit 37.2 VOL% (35.7-47.0); Hemoglobin 12.2 GM/DL (12.0-16.0); Immature Granulocytes % 0.5 %; Immature Granulocytes Absolute 0.03 #; Lymphocytes % 32.8 % (21.3-54.2); Mean Corpuscular HGB Conc 32.8 GM/DL (32-36); Mean Corpuscular Volume 85.3 FL (87-102); Mean Platelet Volume 11.7 FL (9.6-12.0); Monocytes % 10.2 % (1.7-12.7); Neutrophils % 46.3 % (38.7-73.9); Platelet Count 177 T/CUMM (130-400); Red Blood Count 4.36 MC/CUMM (3.8-5.5)
[2021-08-15 04:45] LABS: Albumin 3.6 G/DL (3.4-5.0); Bilirubin,Total 0.5 MG/DL (0.20-1.00); Calcium 8.7 MG/DL (8.5-10.1); Osmolality,Calculated 294.5 MOS/KG (273-304); Potassium 3.7 MMOL/L (3.5-5.1); Total Protein 6.7 G/DL (6.4-8.2)
[2021-08-15 07:16] LABS: Platelet Estimate Adequate
[2021-08-15] MEDS ORDERED: CLOPIDOGREL 75 MG TABLET PO SCH (09:00)
[2021-08-15] MEDS ORDERED: INSULIN GLARGINE 100 UNIT/ML SUBCUT SCH (09:00)
[2021-08-15] MEDS: PANTOPRAZOLE 40 MG TABLET PO SCH (09:20)
[2021-08-15] MEDS: amLODIPine 10 MG TABLET PO SCH (09:20)
[2021-08-15] MEDS: ASPIRIN EC 325 MG TABLET PO SCH (09:21)
[2021-08-15] MEDS: METOPROLOL TARTRATE 25 MG TABLET PO SCH ×2 (09:21→20:15)
[2021-08-15] MEDS: LOSARTAN 50 MG TABLET PO SCH (09:21)
[2021-08-15] MEDS ORDERED: diphenhydrAMINE CAP 25 MG CAPSULE PO ONE (09:30)
[2021-08-15] MEDS ORDERED: DIAZEPAM 5 MG TABLET PO ONE (09:30)
[2021-08-15] MEDS: ACETYLCYSTEINE 600 MG CAPSULE PO SCH ×2 (09:36→20:15)
[2021-08-15] MEDS: ISOSORBIDE MONONITRATE 30 MG TABLET PO SCH (09:37)
[2021-08-15] MEDS: CARBIDOPA/LEVODOPA 25-100 MG TABLET PO SCH ×3 (09:37→20:15)
[2021-08-15] MEDS: FUROSEMIDE 40 MG TABLET PO SCH (09:37)
[2021-08-15] MEDS: DAPAGLIFLOZIN 10 MG TABLET PO SCH (09:37)
[2021-08-15] MEDS ORDERED: HEPARIN/NACL 0.9% 2 UNITS/ML 2,000 UNIT/1,000 ML BAG IV ONE (09:38)
[2021-08-15] MEDS ORDERED: LIDOCAINE 1% 20 ML VIAL ONE (09:38)
[2021-08-15] MEDS ORDERED: HYDROmorphone 2 MG/1 ML VIAL ONE (09:57)
[2021-08-15] MEDS ORDERED: MIDAZOLAM 2 MG/2 ML VIAL ONE (09:57)
[2021-08-15] MEDS ORDERED: BIVALIRUDIN 250 MG VIAL IV ONE (10:39)
[2021-08-15] MEDS ORDERED: NITROGLYCERIN DRIP 50 MG/250 ML BOTTLE IV ONE (10:54)
[2021-08-15] MEDS ORDERED: TICAGRELOR 90 MG TABLET ONE (11:24)
[2021-08-15] MEDS: INSULIN REGULAR 100 UNIT/ML SUBCUT SCH ×4 (11:26→20:15)
[2021-08-15] MEDS ORDERED: DEXTROSE 50% 25 GM/50 ML VIAL IV PRN (11:28)
[2021-08-15] MEDS: INSULIN GLARGINE 100 UNIT/ML SUBCUT SCH ×2 (12:09→20:15)
[2021-08-15] MEDS: ROSUVASTATIN 20 MG TABLET PO SCH (20:14)
[2021-08-15] MEDS: ALPRAZolam 0.5 MG TABLET PO SCH (20:14)
[2021-08-15] MEDS: GABAPENTIN 300 MG CAPSULE PO SCH (20:14)
[2021-08-15] MEDS: MIRTAZAPINE 15 MG TABLET PO SCH (20:14)
[2021-08-15] MEDS: TICAGRELOR 90 MG TABLET PO SCH (20:15)
[2021-08-15] MEDS: ACETAMINOPHEN 325 MG TABLET PO PRN (22:30)
[2021-08-16 04:40] LABS: Basophils % 0.3 % (0.0-0.8); Eosinophils # 0.5 10*3/uL (0.0-0.87); Eosinophils % 8.3 % (0.00-10.9); Hemoglobin 11.6 GM/DL (12.0-16.0); Immature Granulocytes % 0.2 %; Immature Granulocytes Absolute 0.01 #; Lymphocytes # 1.5 10*3/uL (1.4-4.0); Lymphocytes % 25.5 % (21.3-54.2); Mean Corpuscular HGB Conc 32.2 GM/DL (32-36); Mean Corpuscular Volume 84.9 FL (87-102); Mean Platelet Volume 11.4 FL (9.6-12.0); Monocytes % 10.9 % (1.7-12.7); Neutrophils % 54.8 % (38.7-73.9); Platelet Count 174 T/CUMM (130-400); Red Blood Count 4.24 MC/CUMM (3.8-5.5); White Blood Count 5.8 T/CUMM (4-12)
[2021-08-16] MEDS: ASPIRIN EC 325 MG TABLET PO SCH (09:22)
[2021-08-16] MEDS: PANTOPRAZOLE 40 MG TABLET PO SCH (09:22)
[2021-08-16] MEDS: DAPAGLIFLOZIN 10 MG TABLET PO SCH (09:22)
[2021-08-16] MEDS: METOPROLOL TARTRATE 25 MG TABLET PO SCH ×2 (09:23→20:57)
[2021-08-16] MEDS: FUROSEMIDE 40 MG TABLET PO SCH (09:23)
[2021-08-16] MEDS: ACETYLCYSTEINE 600 MG CAPSULE PO SCH ×2 (09:23→20:57)
[2021-08-16] MEDS: amLODIPine 10 MG TABLET PO SCH (09:23)
[2021-08-16] MEDS: ACETAMINOPHEN 325 MG TABLET PO PRN (09:23)
[2021-08-16] MEDS: TICAGRELOR 90 MG TABLET PO SCH ×2 (09:23→20:57)
[2021-08-16] MEDS: ISOSORBIDE MONONITRATE 30 MG TABLET PO SCH (09:24)
[2021-08-16] MEDS: CARBIDOPA/LEVODOPA 25-100 MG TABLET PO SCH ×3 (09:24→20:57)
[2021-08-16] MEDS: INSULIN GLARGINE 100 UNIT/ML SUBCUT SCH ×2 (09:24→20:58)
[2021-08-16] MEDS: LOSARTAN 50 MG TABLET PO SCH (09:24)
[2021-08-16] MEDS: INSULIN REGULAR 100 UNIT/ML SUBCUT SCH ×4 (10:30→20:58)
[2021-08-16 14:55] LABS: Calcium 9.3 MG/DL (8.5-10.1); Potassium 3.9 MMOL/L (3.5-5.1)
[2021-08-16] MEDS: SODIUM CHLORIDE 0.9% 1,000 ML IV SCH (16:43)
[2021-08-16] MEDS: ALPRAZolam 0.5 MG TABLET PO SCH (20:57)
[2021-08-16] MEDS: MIRTAZAPINE 15 MG TABLET PO SCH (20:57)
[2021-08-16] MEDS: ROSUVASTATIN 20 MG TABLET PO SCH (20:57)
[2021-08-16] MEDS: GABAPENTIN 300 MG CAPSULE PO SCH (20:57)
[2021-08-17 05:10] LABS: Basophils % 0.4 % (0.0-0.8); Eosinophils # 0.5 10*3/uL (0.0-0.87); Eosinophils % 8.7 % (0.00-10.9); Hematocrit 36.7 VOL% (35.7-47.0); Hemoglobin 11.6 GM/DL (12.0-16.0); Immature Granulocytes % 0.2 %; Immature Granulocytes Absolute 0.01 #; Lymphocytes # 1.5 10*3/uL (1.4-4.0); Lymphocytes % 27.5 % (21.3-54.2); Mean Corpuscular HGB Conc 31.6 GM/DL (32-36); Mean Corpuscular Volume 85.3 FL (87-102); Mean Platelet Volume 11.1 FL (9.6-12.0); Monocytes % 11.1 % (1.7-12.7); Neutrophils % 52.1 % (38.7-73.9); Platelet Count 182 T/CUMM (130-400); Red Cell Distribution Width 13.1 % (9.3-17.3); White Blood Count 5.4 T/CUMM (4-12)
[2021-08-17 05:42] LABS: Calcium 8.9 MG/DL (8.5-10.1); Osmolality,Calculated 285.7 MOS/KG (273-304); Potassium 3.6 MMOL/L (3.5-5.1)
[2021-08-17] MEDS: SODIUM CHLORIDE 0.9% 1,000 ML IV SCH (05:53)
[2021-08-17] MEDS: INSULIN REGULAR 100 UNIT/ML SUBCUT SCH (08:33)
[2021-08-17] MEDS: TICAGRELOR 90 MG TABLET PO SCH (09:49)
[2021-08-17] MEDS: PANTOPRAZOLE 40 MG TABLET PO SCH (09:49)
[2021-08-17] MEDS: amLODIPine 10 MG TABLET PO SCH (09:49)
[2021-08-17] MEDS: CARBIDOPA/LEVODOPA 25-100 MG TABLET PO SCH (09:49)
[2021-08-17] MEDS: ACETYLCYSTEINE 600 MG CAPSULE PO SCH (09:50)
[2021-08-17] MEDS: DAPAGLIFLOZIN 10 MG TABLET PO SCH (09:50)
[2021-08-17] MEDS: ISOSORBIDE MONONITRATE 30 MG TABLET PO SCH (09:50)
[2021-08-17] MEDS: LOSARTAN 50 MG TABLET PO SCH (09:50)
[2021-08-17] MEDS: ASPIRIN EC 325 MG TABLET PO SCH (09:50)
[2021-08-17] MEDS: METOPROLOL TARTRATE 25 MG TABLET PO SCH (09:50)
[2021-08-17] MEDS: FUROSEMIDE 40 MG TABLET PO SCH (09:50)
[2021-08-17] MEDS: INSULIN GLARGINE 100 UNIT/ML SUBCUT SCH (09:52)
[2021-08-17 10:47] VITALS: BP 168/81
== END 2021-08-17 11:18 | disposition home or self-care (01) ==
LOC: N.EDINP 08:47 → N.ED 08:47 → N.TELES 12:21
PROVIDERS: ADMIT Internal Medicine; ATTEND Internal Medicine

== ENCOUNTER 2021-10-20 14:05 | Inpatient (IN) ==
[2021-10-20 16:26] LABS: Basophils % 0.3 % (0.0-0.8); Eosinophils # 0.3 10*3/uL (0.0-0.87); Hematocrit 39.9 VOL% (35.7-47.0); Hemoglobin 12.3 GM/DL (12.0-16.0); Immature Granulocytes % 0.6 %; Immature Granulocytes Absolute 0.04 #; Lymphocytes # 1.8 10*3/uL (1.4-4.0); Lymphocytes % 26.1 % (21.3-54.2); Mean Corpuscular HGB Conc 30.8 GM/DL (32-36); Mean Corpuscular Volume 86.9 FL (87-102); Mean Platelet Volume 11.6 FL (9.6-12.0); Monocytes % 8.8 % (1.7-12.7); Neutrophils % 60.2 % (38.7-73.9); Platelet Count 265 T/CUMM (130-400); Red Blood Count 4.59 MC/CUMM (3.8-5.5); Red Cell Distribution Width 14.1 % (9.3-17.3); White Blood Count 6.7 T/CUMM (4-12)
[2021-10-20] MEDS ORDERED: NITROGLYCERIN SL 0.4 MG TABLET SL STA (16:45)
[2021-10-20] MEDS ORDERED: ASPIRIN CHEW 81 MG TABLET PO STA (16:45)
[2021-10-20 17:04] LABS: Albumin 3.9 G/DL (3.4-5.0); Bilirubin,Total 0.4 MG/DL (0.20-1.00); Osmolality,Calculated 292.3 MOS/KG (273-304); Potassium 4.2 MMOL/L (3.5-5.1); Total Protein 7.7 G/DL (6.4-8.2)
[2021-10-20] MEDS ORDERED: ENOXAPARIN 60 MG/0.6 ML SYRINGE SUBCUT STA (17:42)
[2021-10-20] MEDS ORDERED: DEXTROSE 50% 25 GM/50 ML SYRINGE IV PRN (19:43)
[2021-10-20] MEDS ORDERED: MORPHINE 2 MG/1 ML SYRINGE IV PRN (19:43)
[2021-10-20] MEDS ORDERED: GLUCAGON 1 MG VIAL IM PRN (19:43)
[2021-10-20] MEDS ORDERED: NITROGLYCERIN SL 0.4 MG TABLET SL PRN (19:43)
[2021-10-20] MEDS ORDERED: ONDANSETRON 4 MG/2 ML VIAL IV PRN (19:43)
[2021-10-20] MEDS: INSULIN REGULAR 100 UNIT/ML SUBCUT SCH (21:10)
[2021-10-20] MEDS: SODIUM CHLORIDE 0.9% 1,000 ML IV SCH (22:01)
[2021-10-20] MEDS: DOCUSATE SODIUM 100 MG CAPSULE PO SCH (22:38)
[2021-10-21] MEDS: ACETAMINOPHEN 325 MG TABLET PO PRN (04:51)
[2021-10-21] MEDS: SODIUM CHLORIDE 0.9% 1,000 ML IV SCH ×2 (06:54→14:05)
[2021-10-21] MEDS ORDERED: NITROGLYCERIN SL 0.4 MG TABLET SL PRN (08:50)
[2021-10-21] MEDS ORDERED: PANTOPRAZOLE 40 MG TABLET PO SCH (09:00)
[2021-10-21] MEDS: ISOSORBIDE MONONITRATE 30 MG TABLET PO SCH (10:41)
[2021-10-21] MEDS: GABAPENTIN 300 MG CAPSULE PO SCH ×2 (10:41→21:40)
[2021-10-21] MEDS: METOPROLOL TARTRATE 25 MG TABLET PO SCH ×2 (10:41→21:39)
[2021-10-21] MEDS: PANTOPRAZOLE 40 MG TABLET PO SCH (10:41)
[2021-10-21] MEDS: CARBIDOPA/LEVODOPA 25-100 MG TABLET PO SCH ×3 (10:41→21:40)
[2021-10-21] MEDS: DAPAGLIFLOZIN 10 MG TABLET PO SCH (10:41)
[2021-10-21] MEDS: LOSARTAN 50 MG TABLET PO SCH (10:41)
[2021-10-21] MEDS: DOCUSATE SODIUM 100 MG CAPSULE PO SCH ×2 (10:41→21:40)
[2021-10-21] MEDS: INSULIN REGULAR 100 UNIT/ML SUBCUT SCH ×4 (10:42→21:38)
[2021-10-21] MEDS: TICAGRELOR 90 MG TABLET PO SCH ×2 (10:42→21:40)
[2021-10-21] MEDS: ASPIRIN CHEW 81 MG TABLET PO SCH (10:42)
[2021-10-21] MEDS: FUROSEMIDE 40 MG TABLET PO SCH (10:42)
[2021-10-21] MEDS: ALPRAZolam 0.5 MG TABLET PO SCH ×2 (10:51→21:39)
[2021-10-21] MEDS ORDERED: POTASSIUM CHLORIDE RIDER 10 MEQ/100 ML PREMIX IV PRN (15:07)
[2021-10-21] MEDS ORDERED: MAGNESIUM SULF RIDER 2 GM/50 ML PREMIX IV PRN (15:07)
[2021-10-21] MEDS: ACETYLCYSTEINE 600 MG CAPSULE PO SCH ×2 (15:48→21:39)
[2021-10-21] MEDS: MIRTAZAPINE 15 MG TABLET PO SCH (21:40)
[2021-10-22 05:27] LABS: Basophils % 0.4 % (0.0-0.8); Eosinophils # 0.3 10*3/uL (0.0-0.87); Eosinophils % 5.4 % (0.00-10.9); Hematocrit 34.6 VOL% (35.7-47.0); Hemoglobin 10.8 GM/DL (12.0-16.0); Immature Granulocytes % 0.7 %; Immature Granulocytes Absolute 0.03 #; Lymphocytes # 1.4 10*3/uL (1.4-4.0); Lymphocytes % 31.2 % (21.3-54.2); Mean Corpuscular HGB Conc 31.2 GM/DL (32-36); Mean Corpuscular Volume 85.4 FL (87-102); Mean Platelet Volume 11.4 FL (9.6-12.0); Monocytes % 10.2 % (1.7-12.7); Neutrophils % 52.1 % (38.7-73.9); Platelet Count 200 T/CUMM (130-400); Red Blood Count 4.05 MC/CUMM (3.8-5.5); Red Cell Distribution Width 13.8 % (9.3-17.3); White Blood Count 4.6 T/CUMM (4-12)
[2021-10-22 05:52] LABS: Calcium 8.5 MG/DL (8.5-10.1); Osmolality,Calculated 289.3 MOS/KG (273-304); Potassium 3.8 MMOL/L (3.5-5.1)
[2021-10-22] MEDS: TICAGRELOR 90 MG TABLET PO SCH ×2 (09:14→20:38)
[2021-10-22] MEDS: SODIUM CHLORIDE 0.9% 1,000 ML IV SCH ×2 (09:14→14:35)
[2021-10-22] MEDS: ASPIRIN CHEW 81 MG TABLET PO SCH (09:14)
[2021-10-22] MEDS: CARBIDOPA/LEVODOPA 25-100 MG TABLET PO SCH ×3 (09:15→20:39)
[2021-10-22] MEDS: PANTOPRAZOLE 40 MG TABLET PO SCH (09:15)
[2021-10-22] MEDS: ISOSORBIDE MONONITRATE 30 MG TABLET PO SCH (09:15)
[2021-10-22] MEDS: METOPROLOL TARTRATE 25 MG TABLET PO SCH ×2 (09:15→20:40)
[2021-10-22] MEDS: LOSARTAN 50 MG TABLET PO SCH (09:15)
[2021-10-22] MEDS: INSULIN REGULAR 100 UNIT/ML SUBCUT SCH ×4 (09:22→20:44)
[2021-10-22] MEDS ORDERED: DIAZEPAM 5 MG TABLET PO ONE (11:00)
[2021-10-22] MEDS ORDERED: diphenhydrAMINE CAP 50 MG CAPSULE PO ONE (11:00)
[2021-10-22] MEDS ORDERED: LIDOCAINE 1% 20 ML VIAL ONE (11:06)
[2021-10-22] MEDS ORDERED: HEPARIN/NACL 0.9% 2 UNITS/ML 2,000 UNIT/1,000 ML BAG IV ONE (11:06)
[2021-10-22] MEDS ORDERED: HYDROmorphone 2 MG/1 ML VIAL ONE (11:20)
[2021-10-22] MEDS ORDERED: MIDAZOLAM 2 MG/2 ML VIAL ONE (11:20)
[2021-10-22] MEDS ORDERED: diphenhydrAMINE 50 MG/1 ML VIAL ONE (11:33)
[2021-10-22] MEDS ORDERED: LABETALOL 20 MG/4 ML SYRINGE IV ONE (11:46)
[2021-10-22] MEDS ORDERED: BIVALIRUDIN 250 MG VIAL IV ONE (11:51)
[2021-10-22] MEDS ORDERED: NITROGLYCERIN DRIP 50 MG/250 ML BOTTLE IV ONE (12:07)
[2021-10-22] MEDS ORDERED: TICAGRELOR 90 MG TABLET ONE (12:11)
[2021-10-22] MEDS ORDERED: DEXTROSE 50% 25 GM/50 ML VIAL IV PRN (12:22)
[2021-10-22] MEDS: ACETYLCYSTEINE 600 MG CAPSULE PO SCH ×2 (13:41→20:39)
[2021-10-22] MEDS: DOCUSATE SODIUM 100 MG CAPSULE PO SCH ×2 (13:41→20:38)
[2021-10-22] MEDS: GABAPENTIN 300 MG CAPSULE PO SCH ×2 (13:41→21:07)
[2021-10-22] MEDS: FUROSEMIDE 40 MG TABLET PO SCH (13:42)
[2021-10-22] MEDS: DAPAGLIFLOZIN 10 MG TABLET PO SCH (13:42)
[2021-10-22] MEDS: ALPRAZolam 0.5 MG TABLET PO SCH ×2 (14:35→20:39)
[2021-10-22] MEDS: ACETAMINOPHEN 325 MG TABLET PO PRN (19:28)
[2021-10-22] MEDS: MIRTAZAPINE 15 MG TABLET PO SCH (20:39)
[2021-10-22] MEDS ORDERED: ROSUVASTATIN 10 MG TABLET PO SCH (21:00)
[2021-10-23 05:56] LABS: Basophils % 0.5 % (0.0-0.8); Eosinophils # 0.2 10*3/uL (0.0-0.87); Eosinophils % 3.8 % (0.00-10.9); Hematocrit 34.7 VOL% (35.7-47.0); Hemoglobin 10.7 GM/DL (12.0-16.0); Immature Granulocytes Absolute 0.06 #; Lymphocytes # 1.5 10*3/uL (1.4-4.0); Lymphocytes % 26.7 % (21.3-54.2); Mean Corpuscular HGB Conc 30.8 GM/DL (32-36); Mean Corpuscular Volume 86.8 FL (87-102); Mean Platelet Volume 11.2 FL (9.6-12.0); Monocytes % 9.8 % (1.7-12.7); Neutrophils % 58.2 % (38.7-73.9); Platelet Count 195 T/CUMM (130-400); Red Cell Distribution Width 13.9 % (9.3-17.3); White Blood Count 5.7 T/CUMM (4-12)
[2021-10-23 06:22] LABS: Calcium 8.6 MG/DL (8.5-10.1); Osmolality,Calculated 286.1 MOS/KG (273-304); Potassium 3.6 MMOL/L (3.5-5.1)
[2021-10-23 08:23] VITALS: BP 170/82
[2021-10-23] MEDS: INSULIN REGULAR 100 UNIT/ML SUBCUT SCH (08:29)
[2021-10-23] MEDS: ASPIRIN CHEW 81 MG TABLET PO SCH (08:30)
[2021-10-23] MEDS: CARBIDOPA/LEVODOPA 25-100 MG TABLET PO SCH (08:30)
[2021-10-23] MEDS: METOPROLOL TARTRATE 25 MG TABLET PO SCH (08:30)
[2021-10-23] MEDS: DAPAGLIFLOZIN 10 MG TABLET PO SCH (08:30)
[2021-10-23] MEDS: ACETYLCYSTEINE 600 MG CAPSULE PO SCH (08:30)
[2021-10-23] MEDS: TICAGRELOR 90 MG TABLET PO SCH (08:30)
[2021-10-23] MEDS: ALPRAZolam 0.5 MG TABLET PO SCH (08:30)
[2021-10-23] MEDS: ISOSORBIDE MONONITRATE 30 MG TABLET PO SCH (08:31)
[2021-10-23] MEDS: FUROSEMIDE 40 MG TABLET PO SCH (08:31)
[2021-10-23] MEDS: PANTOPRAZOLE 40 MG TABLET PO SCH (08:31)
[2021-10-23] MEDS: LOSARTAN 50 MG TABLET PO SCH (08:31)
[2021-10-23] MEDS: DOCUSATE SODIUM 100 MG CAPSULE PO SCH (08:31)
[2021-10-23] MEDS: GABAPENTIN 300 MG CAPSULE PO SCH (08:31)
== END 2021-10-23 11:12 | disposition home or self-care (01) | DRG 247 ==
LOC: N.TELES 14:05 → N.ED 14:05 → N.TELES 20:44
PROVIDERS: ADMIT Internal Medicine; ATTEND Internal Medicine

== ENCOUNTER 2022-03-24 15:38 | Observation (INO) ==
[2022-03-24] MEDS ORDERED: ASPIRIN 325 MG TABLET PO STA (16:11)
[2022-03-24] MEDS ORDERED: MORPHINE 2 MG/1 ML SYRINGE IV STA (16:11)
[2022-03-24 16:55] LABS: Basophils % 0.3 % (0.0-0.8); Eosinophils # 0.3 10*3/uL (0.0-0.87); Hematocrit 36.6 VOL% (35.7-47.0); Hemoglobin 11.4 GM/DL (12.0-16.0); Immature Granulocytes % 0.5 %; Immature Granulocytes Absolute 0.03 #; Lymphocytes # 1.4 10*3/uL (1.4-4.0); Lymphocytes % 22.8 % (21.3-54.2); Mean Corpuscular HGB Conc 31.1 GM/DL (32-36); Mean Corpuscular Volume 87.6 FL (87-102); Mean Platelet Volume 11.7 FL (9.6-12.0); Monocytes # 0.5 10*3/uL (0.11-0.8); Monocytes % 7.7 % (1.7-12.7); Neutrophils % 63.7 % (38.7-73.9); Platelet Count 225 T/CUMM (130-400); Red Blood Count 4.18 MC/CUMM (3.8-5.5); White Blood Count 6.2 T/CUMM (4-12)
[2022-03-24 17:12] LABS: Albumin 4.1 G/DL (3.4-5.0); Bilirubin,Total 0.4 MG/DL (0.20-1.00); Calcium 9.4 MG/DL (8.5-10.1); Osmolality,Calculated 294.4 MOS/KG (273-304); Potassium 4.2 MMOL/L (3.5-5.1); Total Protein 7.3 G/DL (6.4-8.2)
[2022-03-24] MEDS ORDERED: ACETAMINOPHEN 325 MG TABLET PO PRN (17:24)
[2022-03-24] MEDS ORDERED: ONDANSETRON 4 MG/2 ML VIAL IV PRN (17:24)
[2022-03-24] MEDS ORDERED: GLUCAGON 1 MG VIAL IM PRN (17:24)
[2022-03-24] MEDS ORDERED: DEXTROSE 10% 250 ML BAG IV PRN (17:29)
[2022-03-24] MEDS: DOCUSATE SODIUM 100 MG CAPSULE PO SCH (22:12)
[2022-03-24] MEDS: MORPHINE 2 MG/1 ML SYRINGE IV PRN (22:20)
[2022-03-25] MEDS: MORPHINE 2 MG/1 ML SYRINGE IV PRN (04:50)
[2022-03-25 04:51] LABS: Basophils % 0.5 % (0.0-0.8); Eosinophils # 0.3 10*3/uL (0.0-0.87); Eosinophils % 4.5 % (0.00-10.9); Hematocrit 34.2 VOL% (35.7-47.0); Hemoglobin 10.4 GM/DL (12.0-16.0); Immature Granulocytes % 0.5 %; Immature Granulocytes Absolute 0.03 #; Lymphocytes # 1.7 10*3/uL (1.4-4.0); Lymphocytes % 31.2 % (21.3-54.2); Mean Corpuscular HGB Conc 30.4 GM/DL (32-36); Mean Platelet Volume 11.3 FL (9.6-12.0); Monocytes # 0.5 10*3/uL (0.11-0.8); Monocytes % 8.6 % (1.7-12.7); Neutrophils % 54.7 % (38.7-73.9); Platelet Count 205 T/CUMM (130-400); Red Blood Count 3.93 MC/CUMM (3.8-5.5); Red Cell Distribution Width 14.9 % (9.3-17.3); White Blood Count 5.6 T/CUMM (4-12)
[2022-03-25 05:14] LABS: Albumin 3.7 G/DL (3.4-5.0); Bilirubin,Total 0.4 MG/DL (0.20-1.00); Calcium 8.8 MG/DL (8.5-10.1); Osmolality,Calculated 296.8 MOS/KG (273-304); Potassium 3.6 MMOL/L (3.5-5.1); Total Protein 6.9 G/DL (6.4-8.2)
[2022-03-25] MEDS: PANTOPRAZOLE 40 MG TABLET PO SCH ×2 (06:09→12:18)
[2022-03-25] MEDS ORDERED: NITROGLYCERIN SL 0.4 MG TABLET SL PRN (07:21)
[2022-03-25] MEDS ORDERED: VILAZODONE 40 MG PO SCH (09:00)
[2022-03-25] MEDS ORDERED: FUROSEMIDE 40 MG TABLET PO SCH (09:00)
[2022-03-25] MEDS ORDERED: LOSARTAN 50 MG TABLET PO SCH (09:00)
[2022-03-25] MEDS: SODIUM CHLORIDE 0.45% 1,000 ML IV SCH (09:15)
[2022-03-25] MEDS ORDERED: REGADENOSON 0.4 MG/5 ML SYRINGE IV ONE (10:26)
[2022-03-25] MEDS ORDERED: DEXTROSE 50% 25 GM/50 ML VIAL IV PRN (12:08)
[2022-03-25] MEDS ORDERED: GLUCAGON 1 MG VIAL IM PRN (12:08)
[2022-03-25] MEDS: ASPIRIN CHEW 81 MG TABLET PO SCH (12:17)
[2022-03-25] MEDS: ALPRAZolam 0.5 MG TABLET PO SCH ×2 (12:17→21:28)
[2022-03-25] MEDS: amLODIPine 10 MG TABLET PO SCH (12:17)
[2022-03-25] MEDS: METOPROLOL TARTRATE 25 MG TABLET PO SCH ×2 (12:17→21:29)
[2022-03-25] MEDS: TICAGRELOR 90 MG TABLET PO SCH ×2 (12:17→21:28)
[2022-03-25] MEDS: ISOSORBIDE MONONITRATE 30 MG TABLET PO SCH (12:18)
[2022-03-25] MEDS: DAPAGLIFLOZIN 10 MG TABLET PO SCH (12:18)
[2022-03-25] MEDS: GABAPENTIN 300 MG CAPSULE PO SCH (12:18)
[2022-03-25] MEDS: DOCUSATE SODIUM 100 MG CAPSULE PO SCH ×2 (12:18→21:32)
[2022-03-25] MEDS ORDERED: KETOROLAC 30 MG/1 ML VIAL IV ONE (13:18)
[2022-03-25] MEDS ORDERED: INSULIN REGULAR ** CONC 500 UNIT/ML ** 20 ML VIAL SUBCUT SCH (17:00)
[2022-03-25] MEDS ORDERED: GABAPENTIN 300 MG CAPSULE PO SCH (19:00)
[2022-03-25] MEDS ORDERED: ROSUVASTATIN 20 MG TABLET PO SCH (19:00)
[2022-03-25] MEDS ORDERED: MIRTAZAPINE 15 MG TABLET PO SCH (21:00)
[2022-03-26 04:49] LABS: Basophils % 0.6 % (0.0-0.8); Eosinophils # 0.2 10*3/uL (0.0-0.87); Eosinophils % 4.6 % (0.00-10.9); Hematocrit 32.1 VOL% (35.7-47.0); Immature Granulocytes Absolute 0.05 #; Lymphocytes # 1.5 10*3/uL (1.4-4.0); Lymphocytes % 30.5 % (21.3-54.2); Mean Corpuscular HGB Conc 31.2 GM/DL (32-36); Mean Corpuscular Volume 86.8 FL (87-102); Mean Platelet Volume 11.2 FL (9.6-12.0); Monocytes # 0.5 10*3/uL (0.11-0.8); Monocytes % 9.8 % (1.7-12.7); Neutrophils % 53.5 % (38.7-73.9); Platelet Count 185 T/CUMM (130-400); Red Cell Distribution Width 14.6 % (9.3-17.3)
[2022-03-26 05:17] LABS: Calcium 8.6 MG/DL (8.5-10.1); Osmolality,Calculated 294.5 MOS/KG (273-304); Potassium 4.7 MMOL/L (3.5-5.1)
[2022-03-26] MEDS: SODIUM CHLORIDE 0.45% 1,000 ML IV SCH (05:17)
[2022-03-26] MEDS: PANTOPRAZOLE 40 MG TABLET PO SCH ×2 (06:17→08:36)
[2022-03-26] MEDS ORDERED: KETOROLAC 10 MG TABLET PO PRN (07:35)
[2022-03-26] MEDS ORDERED: INSULIN REGULAR ** CONC 500 UNIT/ML ** 20 ML VIAL SUBCUT SCH (08:00)
[2022-03-26 08:07] VITALS: BP 126/75
[2022-03-26] MEDS: DOCUSATE SODIUM 100 MG CAPSULE PO SCH (08:35)
[2022-03-26] MEDS: ASPIRIN CHEW 81 MG TABLET PO SCH (08:35)
[2022-03-26] MEDS: ALPRAZolam 0.5 MG TABLET PO SCH (08:35)
[2022-03-26] MEDS: DAPAGLIFLOZIN 10 MG TABLET PO SCH (08:35)
[2022-03-26] MEDS: GABAPENTIN 300 MG CAPSULE PO SCH (08:35)
[2022-03-26] MEDS: ISOSORBIDE MONONITRATE 30 MG TABLET PO SCH (08:35)
[2022-03-26] MEDS: TICAGRELOR 90 MG TABLET PO SCH (08:35)
[2022-03-26] MEDS: amLODIPine 10 MG TABLET PO SCH (08:36)
[2022-03-26] MEDS: METOPROLOL TARTRATE 25 MG TABLET PO SCH (08:36)
== END 2022-03-26 09:17 | disposition home or self-care (01) ==
LOC: N.ED 15:38 → N.TELEN 15:38
PROVIDERS: ADMIT Internal Medicine; ATTEND Internal Medicine

== ENCOUNTER 2022-06-25 17:02 | Inpatient (IN) ==
[2022-06-25 17:55] LABS: Basophils % 0.3 % (0.0-0.8); Eosinophils # 0.2 10*3/uL (0.0-0.87); Eosinophils % 3.1 % (0.00-10.9); Hemoglobin 12.2 GM/DL (12.0-16.0); Immature Granulocytes % 0.7 %; Immature Granulocytes Absolute 0.05 #; Lymphocytes # 1.6 10*3/uL (1.4-4.0); Lymphocytes % 23.1 % (21.3-54.2); Mean Corpuscular HGB Conc 32.1 GM/DL (32-36); Mean Corpuscular Volume 83.7 FL (87-102); Mean Platelet Volume 11.6 FL (9.6-12.0); Monocytes # 0.6 10*3/uL (0.11-0.8); Monocytes % 8.1 % (1.7-12.7); Neutrophils % 64.7 % (38.7-73.9); Platelet Count 225 T/CUMM (130-400); Red Blood Count 4.54 MC/CUMM (3.8-5.5); White Blood Count 6.8 T/CUMM (4-12)
[2022-06-25 18:14] LABS: Bilirubin,Total 0.5 MG/DL (0.20-1.00); Calcium 9.3 MG/DL (8.5-10.1); Osmolality,Calculated 290.8 MOS/KG (273-304); Potassium 4.1 MMOL/L (3.5-5.1); Total Protein 7.5 G/DL (6.4-8.2)
[2022-06-25] MEDS ORDERED: SODIUM CHLORIDE 0.9% 500 ML IV STA (18:18)
[2022-06-25] MEDS ORDERED: ONDANSETRON 4 MG/2 ML VIAL IV ONE (18:18)
[2022-06-25] MEDS ORDERED: MORPHINE 2 MG/1 ML SYRINGE IV STA (18:18)
[2022-06-25] MEDS ORDERED: ONDANSETRON 4 MG/2 ML VIAL IV PRN (18:39)
[2022-06-25] MEDS ORDERED: ENOXAPARIN 100 MG/ML SYRINGE SUBCUT STA (18:51)
[2022-06-25] MEDS ORDERED: ENOXAPARIN 120 MG/0.8 ML SYRINGE SUBCUT STA (18:52)
[2022-06-25] MEDS: GABAPENTIN 600 MG TABLET PO SCH (22:18)
[2022-06-25] MEDS: ALPRAZolam 0.5 MG TABLET PO SCH (22:18)
[2022-06-25] MEDS: MIRTAZAPINE 15 MG TABLET PO SCH (22:18)
[2022-06-25] MEDS: ACETAMINOPHEN 325 MG TABLET PO PRN (22:19)
[2022-06-26 01:27] LABS: Basophils % 0.6 % (0.0-0.8); Eosinophils # 0.2 10*3/uL (0.0-0.87); Eosinophils % 2.8 % (0.00-10.9); Hematocrit 35.1 VOL% (35.7-47.0); Immature Granulocytes % 0.5 %; Immature Granulocytes Absolute 0.03 #; Lymphocytes # 1.7 10*3/uL (1.4-4.0); Lymphocytes % 26.4 % (21.3-54.2); Mean Corpuscular HGB Conc 31.3 GM/DL (32-36); Mean Platelet Volume 11.4 FL (9.6-12.0); Monocytes # 0.6 10*3/uL (0.11-0.8); Monocytes % 8.9 % (1.7-12.7); Neutrophils % 60.8 % (38.7-73.9); Platelet Count 206 T/CUMM (130-400); Red Blood Count 4.08 MC/CUMM (3.8-5.5); Red Cell Distribution Width 14.1 % (9.3-17.3); White Blood Count 6.4 T/CUMM (4-12)
[2022-06-26 02:34] LABS: Alanine Aminotransferase 34 U/L (13-56); Albumin 3.6 G/DL (3.4-5.0); Alkaline Phosphatase 117 U/L (45-117); Aspartate Amino Transferase 26 U/L (0-37); Bilirubin,Total < 0.39 MG/DL (0.20-1.00); Blood Urea Nitrogen 33 MG/DL (7-18); Calcium 8.9 MG/DL (8.5-10.1); Carbon Dioxide 22 MMOL/L (21-32); Chloride 106 MMOL/L (98-107); Glucose 200 MG/DL (74-106); Osmolality,Calculated 287.7 MOS/KG (273-304); Sodium 138 MMOL/L (136-145); Total Protein 6.8 G/DL (6.4-8.2)
[2022-06-26] MEDS ORDERED: INSULIN REGULAR 100 UNIT/ML SUBCUT SCH ×2 (07:30→16:30)
[2022-06-26] MEDS ORDERED: metFORMIN 500 MG TABLET PO SCH (08:00)
[2022-06-26] MEDS: PANTOPRAZOLE 40 MG VIAL IV SCH (08:59)
[2022-06-26] MEDS: ALPRAZolam 0.5 MG TABLET PO SCH ×2 (09:00→20:57)
[2022-06-26] MEDS: INSULIN REGULAR 100 UNIT/ML SUBCUT SCH ×4 (09:00→20:58)
[2022-06-26] MEDS ORDERED: LOSARTAN 50 MG TABLET PO SCH (09:00)
[2022-06-26] MEDS: ROSUVASTATIN 20 MG TABLET PO SCH (09:02)
[2022-06-26] MEDS: MORPHINE 2 MG/1 ML SYRINGE IV PRN (09:02)
[2022-06-26] MEDS: METOPROLOL TARTRATE 25 MG TABLET PO SCH ×2 (09:02→20:57)
[2022-06-26] MEDS: ASPIRIN CHEW 81 MG TABLET PO SCH (09:02)
[2022-06-26] MEDS: amLODIPine 10 MG TABLET PO SCH (09:02)
[2022-06-26] MEDS: DAPAGLIFLOZIN 10 MG TABLET PO SCH (09:02)
[2022-06-26] MEDS: GABAPENTIN 300 MG CAPSULE PO SCH (09:02)
[2022-06-26] MEDS: LOSARTAN 25 MG TABLET PO SCH (09:23)
[2022-06-26] MEDS: FUROSEMIDE 40 MG TABLET PO SCH (09:27)
[2022-06-26] MEDS ORDERED: NITROGLYCERIN SL 0.4 MG TABLET SL PRN (11:06)
[2022-06-26] MEDS: GABAPENTIN 600 MG TABLET PO SCH (20:57)
[2022-06-26] MEDS: MIRTAZAPINE 15 MG TABLET PO SCH (20:57)
[2022-06-26] MEDS: TICAGRELOR 90 MG TABLET PO SCH (20:57)
[2022-06-27] MEDS: INSULIN REGULAR 100 UNIT/ML SUBCUT SCH ×6 (01:54→21:10)
[2022-06-27] MEDS ORDERED: INSULIN GLARGINE 100 UNIT/ML SUBCUT SCH (09:00)
[2022-06-27] MEDS: ISOSORBIDE MONONITRATE 30 MG TABLET PO SCH (10:41)
[2022-06-27] MEDS: DAPAGLIFLOZIN 10 MG TABLET PO SCH (10:41)
[2022-06-27] MEDS: amLODIPine 10 MG TABLET PO SCH (10:41)
[2022-06-27] MEDS: METOPROLOL TARTRATE 25 MG TABLET PO SCH ×2 (10:41→21:11)
[2022-06-27] MEDS: ROSUVASTATIN 20 MG TABLET PO SCH (10:41)
[2022-06-27] MEDS: GABAPENTIN 300 MG CAPSULE PO SCH (10:41)
[2022-06-27] MEDS: LOSARTAN 25 MG TABLET PO SCH (10:41)
[2022-06-27] MEDS: FUROSEMIDE 40 MG TABLET PO SCH (10:41)
[2022-06-27] MEDS: ALPRAZolam 0.5 MG TABLET PO SCH ×2 (10:41→21:11)
[2022-06-27] MEDS: ASPIRIN CHEW 81 MG TABLET PO SCH (10:42)
[2022-06-27] MEDS: PANTOPRAZOLE 40 MG VIAL IV SCH (10:42)
[2022-06-27] MEDS: TICAGRELOR 90 MG TABLET PO SCH ×2 (10:42→21:11)
[2022-06-27] MEDS: MORPHINE 2 MG/1 ML SYRINGE IV PRN (21:11)
[2022-06-27] MEDS: MIRTAZAPINE 15 MG TABLET PO SCH (21:11)
[2022-06-27] MEDS: GABAPENTIN 600 MG TABLET PO SCH (21:11)
[2022-06-27] MEDS: NON-FORMULARY MEDICATION (Insulin Regular Hum U-500 Conc [Humulin R U-500 (Conc) Kwikpen] SUBCUT SCH (21:16)
[2022-06-27] MEDS: ENOXAPARIN 30 MG/0.3 ML SYRINGE SUBCUT SCH (21:16)
[2022-06-28] MEDS: INSULIN REGULAR 100 UNIT/ML SUBCUT SCH ×6 (01:49→20:38)
[2022-06-28 05:46] LABS: Basophils % 0.3 % (0.0-0.8); Eosinophils # 0.2 10*3/uL (0.0-0.87); Eosinophils % 3.3 % (0.00-10.9); Hematocrit 33.5 VOL% (35.7-47.0); Hemoglobin 10.4 GM/DL (12.0-16.0); Immature Granulocytes % 0.9 %; Immature Granulocytes Absolute 0.05 #; Lymphocytes # 1.5 10*3/uL (1.4-4.0); Lymphocytes % 26.1 % (21.3-54.2); Mean Corpuscular Volume 85.9 FL (87-102); Mean Platelet Volume 11.2 FL (9.6-12.0); Monocytes # 0.5 10*3/uL (0.11-0.8); Monocytes % 8.7 % (1.7-12.7); Neutrophils % 60.7 % (38.7-73.9); Platelet Count 187 T/CUMM (130-400); White Blood Count 5.8 T/CUMM (4-12)
[2022-06-28 05:58] LABS: Calcium 9.1 MG/DL (8.5-10.1); Osmolality,Calculated 293.8 MOS/KG (273-304); Potassium 3.7 MMOL/L (3.5-5.1)
[2022-06-28] MEDS: NON-FORMULARY MEDICATION (Insulin Regular Hum U-500 Conc [Humulin R U-500 (Conc) Kwikpen] SUBCUT SCH ×2 (08:59→17:11)
[2022-06-28] MEDS: PANTOPRAZOLE 40 MG VIAL IV SCH (08:59)
[2022-06-28] MEDS: MORPHINE 2 MG/1 ML SYRINGE IV PRN (09:01)
[2022-06-28] MEDS: TICAGRELOR 90 MG TABLET PO SCH ×2 (09:02→20:38)
[2022-06-28] MEDS: ASPIRIN CHEW 81 MG TABLET PO SCH (09:02)
[2022-06-28] MEDS: ROSUVASTATIN 20 MG TABLET PO SCH (09:03)
[2022-06-28] MEDS: LOSARTAN 25 MG TABLET PO SCH (09:03)
[2022-06-28] MEDS: ISOSORBIDE MONONITRATE 30 MG TABLET PO SCH (09:04)
[2022-06-28] MEDS: DAPAGLIFLOZIN 10 MG TABLET PO SCH (09:04)
[2022-06-28] MEDS: GABAPENTIN 300 MG CAPSULE PO SCH (09:05)
[2022-06-28] MEDS: METOPROLOL TARTRATE 25 MG TABLET PO SCH ×2 (09:05→20:38)
[2022-06-28] MEDS: FUROSEMIDE 40 MG TABLET PO SCH (09:05)
[2022-06-28] MEDS: ALPRAZolam 0.5 MG TABLET PO SCH ×2 (09:06→20:38)
[2022-06-28] MEDS: amLODIPine 10 MG TABLET PO SCH (09:06)
[2022-06-28] MEDS: INSULIN REGULAR ** CONC 500 UNIT/ML ** 20 ML VIAL SUBCUT SCH (09:30)
[2022-06-28] MEDS ORDERED: INSULIN REGULAR ** CONC 500 UNIT/ML ** 20 ML VIAL SUBCUT SCH ×2 (11:30→17:00)
[2022-06-28] MEDS ORDERED: NON-FORMULARY MEDICATION (Insulin Regular Hum U-500 Conc [Humulin R U-500 (Conc) Kwikpen] SUBCUT SCH (12:00)
[2022-06-28] MEDS ORDERED: TUBERCULIN SKIN TEST 0.1 ML SYRINGE INTRADERM ONE (14:33)
[2022-06-28] MEDS: MIRTAZAPINE 15 MG TABLET PO SCH (20:38)
[2022-06-28] MEDS: ENOXAPARIN 30 MG/0.3 ML SYRINGE SUBCUT SCH (20:38)
[2022-06-28] MEDS: GABAPENTIN 600 MG TABLET PO SCH (20:38)
[2022-06-28] MEDS: ACETAMINOPHEN 325 MG TABLET PO PRN (21:24)
[2022-06-29] MEDS: INSULIN REGULAR 100 UNIT/ML SUBCUT SCH ×3 (00:37→10:25)
[2022-06-29 08:56] VITALS: BP 162/82
[2022-06-29] MEDS ORDERED: CHOLECALCIFEROL 1,000 UNIT TABLET PO SCH (09:00)
[2022-06-29] MEDS: LOSARTAN 25 MG TABLET PO SCH (10:26)
[2022-06-29] MEDS: TICAGRELOR 90 MG TABLET PO SCH (10:26)
[2022-06-29] MEDS: ASPIRIN CHEW 81 MG TABLET PO SCH (10:26)
[2022-06-29] MEDS: DAPAGLIFLOZIN 10 MG TABLET PO SCH (10:27)
[2022-06-29] MEDS: ROSUVASTATIN 20 MG TABLET PO SCH (10:27)
[2022-06-29] MEDS: INSULIN REGULAR ** CONC 500 UNIT/ML ** 20 ML VIAL SUBCUT SCH (10:28)
[2022-06-29] MEDS: NON-FORMULARY MEDICATION (Insulin Regular Hum U-500 Conc [Humulin R U-500 (Conc) Kwikpen] SUBCUT SCH (10:28)
[2022-06-29] MEDS: PANTOPRAZOLE 40 MG VIAL IV SCH (10:29)
[2022-06-29] MEDS: FUROSEMIDE 40 MG TABLET PO SCH (10:29)
[2022-06-29] MEDS: amLODIPine 10 MG TABLET PO SCH (10:29)
[2022-06-29] MEDS: METOPROLOL TARTRATE 25 MG TABLET PO SCH (10:29)
[2022-06-29] MEDS: GABAPENTIN 300 MG CAPSULE PO SCH (10:29)
[2022-06-29] MEDS: ISOSORBIDE MONONITRATE 30 MG TABLET PO SCH (10:29)
[2022-06-29] MEDS: ALPRAZolam 0.5 MG TABLET PO SCH (10:30)
== END 2022-06-29 13:40 | disposition swing bed (61) | DRG 313 ==
LOC: N.EDINP 17:02 → N.ED 17:02 → N.TELES 19:32 → N.TELEN 19:38
PROVIDERS: ADMIT Internal Medicine; ATTEND Internal Medicine